=== PATIENT | female | born 1980 | race Caucasian/White ===

== ENCOUNTER 2022-11-16 10:03 | Emergency (ER) | payer SELFPAY ==
--- OUTSIDE RECORDS SUMMARY | 2022-11-16 10:12 | XMS REPORT | Continuity of Care Document ---
:1980 Author Organization [facility] t Address [address] [place] [address] Care Team Providers Name Role Phone [facility] EDD, [facility] Primary Care Physician [phone] GAGAN GARCIA Attending Clinician Unavailable MARCELLA LR Attending Clinician Unavailable Leonel Arrieta MD Attending Clinician LEONEL ARRIETA Attending Clinician Unavailable Gagan Ureña Attending Clinician Doctor Unassigned, [place] Attending Clinician Unavailable JULI FRY Attending Clinician Unavailable Juli Castillo Attending Clinician Nurse, Shandra Urgent Attending Clinician Unavailable Unknown, Attending Attending Clinician Unavailable CHRISTIANA ESTEBAN Attending Clinician Unavailable Chad Darby MD Attending Clinician [facility] Attending Clinician Unavailable Only, Shandra Uc Test Attending Clinician Unavailable WEI DE LEON Attending Clinician Unavailable MARLENE AMBRIZ Attending Clinician Unavailable Carleen SALINAS, Marlene Juarez Attending Clinician Leonel Dorsey MD Attending Clinician KAREN COUCH Attending Clinician Unavailable Shabbir PUGA, Karen Mckeon Attending Clinician BOZENA QUICK Attending Clinician Unavailable FAUSTO SIMEON Attending Clinician Unavailable Ame SAENZ, Aliza Ceron Attending Clinician RACHEL RED Attending Clinician Unavailable RACHEL RED Attending Clinician Unavailable Maren HINSON, Deidra Walker Attending Clinician Star Littlejohn MD Attending Clinician CHAD DARBY Attending Clinician Unavailable Calvin PUGA, Radha Attending Clinician [phone] Care, Shandra Urgent Attending Clinician Unavailable RADHA SIMPSON Attending Clinician Unavailable UNKNOWN, ATTENDING Attending Clinician Unavailable Yesenia Long Attending Clinician Unavailable PAIGE CURRIE Attending Clinician Unavailable Tenisha Morales Attending Clinician KORIN AMBRIZ Attending Clinician Unavailable JER LOPEZ Attending Clinician Unavailable JER LOPEZ Attending Clinician Unavailable SONA RUIZ Attending Clinician Unavailable Rachel Teran MD Attending Clinician [phone] RACHEL TERAN Attending Clinician Unavailable [facility] Attending Clinician Unavailable Paige Currie DO Attending Clinician Korin Ambriz MD Attending Clinician [phone] Gilberto Dalton Attending Clinician Unavailable LARRY WATTS Attending Clinician Unavailable Larry Watts MD Attending Clinician Draw, Clc-Bls Lab Attending Clinician Unavailable NATI LITTLEJOHN Attending Clinician Unavailable Darryl Romero DO Attending Clinician Christiana Esteban PA-C Attending Clinician Lab, Adc Fam Pob I Attending Clinician Unavailable Gatito Xiong Attending Clinician GATITO MIXON Attending Clinician Unavailable NASEEM LEE Attending Clinician Unavailable DARYL BOWEN Attending Clinician Unavailable Lenny Smith MD Attending Clinician LENNY SMITH Attending Clinician Unavailable GABBI RÍOS Attending Clinician Unavailable Khushbu SWEDGER, Gabbi Attending Clinician Lab, Web Sleep Attending Clinician Unavailable Physician, No Primary or Family Admitting Clinician UnavailRACHEL Ibarra Admitting Clinician Unavailable Yesenia Long Admitting Clinician Unavailable Payers Payer Name Policy Type Policy Number Effective Date Expiration Date Ines TAVARES BCSHAYE RODRIGUEZ [id number] 2019 ADVANTAGE HMO 00:00:00 AGENCY GENERIC [id number] 2021 00:00:00 Problems Condition Condition Condition Status Onset Resolution Last Treating Co mments Source Name Details Category Date Date Treatment Clinician Date Cellulitis Cellulitis Disease Active U nivers of right of right 6-20 ity of upper upper 00:00: [place] extremity extremity 00 Medi elaine Branch Abscess Abscess Disease Active Univers 6-19 ity of 00:00: [place] [facility] Branch Anxiety Anxiety Disease Active Univers and and 6-13 ity of depression depression 00:[place]: [place] [facility] Bipolar Bipolar Disease Active Univers affective affective 6-13 ity of disorder, disorder, 00:00: [place] s current current 00 Medical episode episode Branch depressed, depressed, current current episode episode severity severity unspecifie unspecifie d d Pelvic Pelvic Disease Active Univers mass mass 8-02 ity of 00:00: [place] [facility] Hyperlipid Hyperlipid Disease Active U nivers emia, emia, 7-27 ity of unspecifie unspecifie 00:[place] hyperlipid hyperlipid Br anch emia type emia type Obesity Obesity Disease Active Univers (BMI (BMI 8-20 ity of 30-39.9) 30-39.9) 00:00: [place] 00 Medical Branch Uncontroll Uncontroll Disease Active U nivers ed daytime ed daytime 06-09 it y of somnolence somnolence 00:00: [place] [facility] FH: FH: Disease Active Univers rheumatoid rheumatoid 06-09 it y of arthritis arthritis [place] Chronic Chronic Disease Active Univers pain of pain of 06-09 ity of multiple multiple 00:00: [place] joints joints 00 Medical Branch AIDS AIDS Disease Recurre Univers nce 6-12 ity of 00:00: [place] 00 Medical Branch IVDU IVDU Disease Active Univers (intraveno (intraveno 04-19 it y of us drug us drug 00:00: [place] user) user) [address] [facility] Allergies, Adverse Reactions, Alerts Allergy Allergy Status Severity Reaction(s) Onset Inactive Treating Comm ents Source Name Type Date Date Clinician No Known DA Active U [facility] Allergie 1-29 Clear s 00:00: [place] [address] [facility] NO KNOWN Drug Active Univers ALLERGIE Class ity of S [facility] Social History Social Habit Start Date Stop Date Quantity Comments Source Alcohol intake 2022-10-20 2022-10-20 Current University of 00:00:00 00:00:00 non-drinker of [facility] alcohol [place] (finding) Exposure to 2022-10-09 2022-10-19 Not sure University of SARS-CoV-2 (event) 00:00:00 10:41:00 [facility] Cigarettes smoked 2022-06-23 2022-06-23 Univers ity of current (pack per 00:00:00 00:00:00 [place] ) - Reported Branch Tobacco use and 2022-06-23 2022-06-23 Smokeless Universit y of exposure 00:00:00 00:00:00 tobacco non-user [facility] History of tobacco 2017-05-18 Cigarette Smoker University of use 00:00:00 [facility] Sex Ass[birth year] At [birth year] Universit y of 00:00:00 00:00:00 [facility] Smoking Status Start Date Stop Date Source Smokes tobacco daily 2022-06-23 00:00:00 Univers ity of [facility] Medications Ordered Filled Start Stop Current Ordering Indication Dosage Frequency Signature Comments Components Source Medication Medication Date Date Medication? Clinician (SIG) Name Name TAKE ONE No TABLET BY 1-02 MOUTH EVERY 00:00: MORNING 00 OLANZAPINE No 5 MG TABS 11-08 00:00: 00 No known 2021-11 No No known Unive rs medications 2-22 medication it y of 15:12: s [place] 13 Medical Branch amoxicillin 2021-11- Yes [id number] 1000mg Take 2 Univers 500 mg 2-13 12-24 capsules ity of capsule 00:00: 05:59 by mouth [place] 00 :00 in the Medical morning Branch and 2 capsules in the evening. Do all this for 10 days. amoxicillin 2021-11- Yes [id number] 1000mg Take 2 Univers 500 mg 2-13 12-24 capsules ity of capsule 00:00: 05:59 by mouth [place] 00 :00 in the Medical morning Branch and 2 capsules in the evening. Do all this for 10 days. aripiprazol 2021-11 Yes Take by Uni vers e (ABILIFY 1-29 mouth. ity of ORAL) 16:17: [place] [facility] aripiprazol 2021-11 Yes Take by Uni vers e (ABILIFY 1-29 mouth. ity of ORAL) 16:17: [place] [facility] aripiprazol 2021-11 Yes Take by Uni vers e (ABILIFY 1-29 mouth. ity of ORAL) 16:17: [place] [facility] aripiprazol 2021-11 Yes Take by Uni vers e (ABILIFY 1-29 mouth. ity of ORAL) 16:17: [place] [facility] aripiprazol 2021-11 Yes Take by Uni vers e (ABILIFY 1-29 mouth. ity of ORAL) 16:17: [place] [address] [facility] OLANZapine 2021-11- No 7.5mg Take 7.5 U nivers 2.5 mg 1-29 11-29 mg by ity of tablet 15:35: 00:00 mouth at [place] 26 :00 bedtime. [facility] Branch OLANZapine 2021-11- No 7.5mg Take 7.5 U nivers 2.5 mg 1-29 11-29 mg by ity of tablet 15:35: 00:00 mouth at [place] 26 :00 bedtime. Medical Branch TRIUMEQ 2021-11 Yes [id number] 1{tbl} Take 1 Un tobias 600-50-300 1-29 tablet by ity of mg per 00:00: mouth [place] tablet 00 every Medical morning. Branch TRIUMEQ 2021-11 Yes [id number] 1{tbl} Take 1 Un tobias 600-50-300 1-29 tablet by ity of mg per 00:00: mouth [place] tablet 00 every Medical morning. [place] [facility]11 Yes [id number] 1{tbl} Take 1 Un tobias 600-50-300 1-29 tablet by ity of mg per 00:00: mouth [place] tablet 00 every Medical morning. [place] [facility] 2021-11 Yes [id number] 1{tbl} Take 1 Un tobias 600-50-300 1-29 tablet by ity of mg per 00:00: mouth [place] tablet 00 every Medical morning. [place] [facility]11 Yes [id number] 1{tbl} Take 1 Un tobias 600-50-300 1-29 tablet by ity of mg per 00:00: mouth [place] tablet 00 every Medical morning. [place] abacavir-do Yes [id number] 1{tbl} Take 1 Univers lutegravir- 8-31 tablet by ity of lamivudine 00:00: mouth [place] (TRIUMEQ) 00 every Medical 600-50-300 morning. Branc h mg per tablet abacavir-do Yes [id number] 1{tbl} Take 1 Univers lutegravir- 8-31 tablet by ity of lamivudine 00:00: mouth [place] (TRIUMEQ) 00 every Medical 600-50-300 morning. Branc h mg per tablet abacavir-do Yes [id number] 1{tbl} Take 1 Univers lutegravir- 8-31 tablet by ity of lamivudine 00:00: mouth [place] (TRIUMEQ) 00 every Medical 600-50-300 morning. Branc h mg per tablet abacavir-do Yes [id number] 1{tbl} Take 1 Univers lutegravir- 8-31 tablet by ity of lamivudine 00:00: mouth [place] (TRIUMEQ) 00 every Medical 600-50-300 morning. Branc h mg per tablet abacavir-do 0 No [id number] 1{tbl} Take 1 Univers lutegravir- 8-31 11-29 tablet by it y of lamivudine 00:00: 00:00 mouth [place] (TRIUMEQ) 00 :00 every Medical 600-50-300 morning. Branc h mg per tablet abacavir-do 0 2021- No [id number] 1{tbl} Take 1 Univers lutegravir- 8-31 11-29 tablet by it y of lamivudine 00:00: 00:00 mouth [place] (TRIUMEQ) 00 :00 every Medical 600-50-300 morning. Branc h mg per tablet DULoxetine 2021-0 Yes 40mg Take 40 mg U nivers 20 mg 8-16 by mouth ity of capsule 08:07: at [place] [address] bedtime. Medical Branch OLANZapine 2021-0 Yes 7.5mg Take 7.5 Un tobias 2.5 mg 8-16 mg by ity of tablet 08:07: mouth at [place] [address] bedtime. Medical Branch DULoxetine 2021-0 Yes 40mg Take 40 mg U nivers 20 mg 8-16 by mouth ity of capsule 08:07: at [place] [address] bedtime. Medical Branch OLANZapine 2021-0 Yes 7.5mg Take 7.5 Un tobias 2.5 mg 8-16 mg by ity of tablet 08:07: mouth at [place] [address] bedtime. Medical Branch DULoxetine 2021-0 Yes 40mg Take 40 mg U nivers 20 mg 8-16 by mouth ity of capsule 08:07: at [place] [address] bedtime. Medical Branch OLANZapine 2-0 Yes 7.5mg Take 7.5 Un tobias 2.5 mg 8-16 mg by ity of tablet 08:07: mouth at [place] [address] bedtime. Medical Branch DULoxetine 2-0 Yes 40mg Take 40 mg U nivers 20 mg 8-16 by mouth ity of capsule 08:07: at [place] [address] bedtime. Medical Branch OLANZapine 2-0 Yes 7.5mg Take 7.5 Un tobias 2.5 mg 8-16 mg by ity of tablet 08:07: mouth at [place] [address] bedtime. Medical Branch DULoxetine 2-0 Yes 40mg Take 40 mg U nivers 20 mg 8-16 by mouth ity of capsule 08:07: at [place] [address] bedtime. Medical Branch OLANZapine 2022-0 Yes 7.5mg Take 7.5 Un tobias 2.5 mg 8-16 mg by ity of tablet 08:07: mouth at [place] [address] bedtime. Medical Branch DULoxetine 2022-0 Yes 40mg Take 40 mg U nivers 20 mg 8-16 by mouth ity of capsule 08:07: at [place] [address] bedtime. Medical Branch OLANZapine 2022-0 Yes 7.5mg Take 7.5 Un tobias 2.5 mg 8-16 mg by ity of tablet 08:07: mouth at [place] [address] bedtime. Medical Branch DULoxetine 2022-0 Yes 40mg Take 40 mg U nivers 20 mg 8-16 by mouth ity of capsule 08:07: at [place] [address] bedtime. Medical Branch OLANZapine 2022-0 Yes 7.5mg Take 7.5 Un tobias 2.5 mg 8-16 mg by ity of tablet 08:07: mouth at [place] [address] bedtime. Medical Branch DULoxetine 2022-0 Yes 40mg Take 40 mg U nivers 20 mg 8-16 by mouth ity of capsule 08:07: at [place] [address] bedtime. Medical Branch OLANZapine 2022-0 Yes 7.5mg Take 7.5 Un tobias 2.5 mg 8-16 mg by ity of tablet 08:07: mouth at [place] [address] bedtime. Medical Branch DULoxetine 2022-0 Yes 40mg Take 40 mg U nivers 20 mg 8-16 by mouth ity of capsule 08:07: at [place] [address] bedtime. Medical Branch DULoxetine 2022-0 Yes 40mg Take 40 mg U nivers 20 mg 8-16 by mouth ity of capsule 08:07: at [place] [address] bedtime. Medical Branch DULoxetine 2022-0 Yes 40mg Take 40 mg U nivers 20 mg 8-16 by mouth ity of capsule 08:07: at [place] [address] bedtime. Medical Branch DULoxetine 2022-0 Yes 40mg Take 40 mg U nivers 20 mg 8-16 by mouth ity of capsule 08:07: at [place] [address] bedtime. Medical Branch DULoxetine 2022-0 Yes 40mg Take 40 mg U nivers 20 mg 8-16 by mouth ity of capsule 08:07: at [place] [address] bedtime. Medical Branch cyclobenzap 2022-0 Yes TAKE ONE Un tobias rine 10 mg 8-08 TABLET BY ity of tablet 00:00: MOUTH [place] 00 TWICE Medical DAILY Branch NEEDED cyclobenzap 2022-0 Yes TAKE ONE Un tobias rine 10 mg 8-08 TABLET BY ity of tablet 00:00: MOUTH [place] 00 TWICE Medical DAILY Branch NEEDED cyclobenzap 2022-0 Yes TAKE ONE Un tobias rine 10 mg 8-08 TABLET BY ity of tablet 00:00: MOUTH [place] 00 TWICE Medical DAILY Branch NEEDED cyclobenzap 2022-0 Yes TAKE ONE Un tobias rine 10 mg 8-08 TABLET BY ity of tablet 00:00: MOUTH [place] 00 TWICE Medical DAILY Branch NEEDED cyclobenzap 2022-0 Yes TAKE ONE Un tobias rine 10 mg 8-08 TABLET BY ity of tablet 00:00: MOUTH [place] 00 TWICE Medical DAILY Branch NEEDED cyclobenzap 2022-0 Yes TAKE ONE Un tobias rine 10 mg 8-08 TABLET BY ity of tablet 00:00: MOUTH [place] 00 TWICE Medical DAILY Branch NEEDED cyclobenzap 2022-0 Yes TAKE ONE Un tobias rine 10 mg 8-08 TABLET BY ity of tablet 00:00: MOUTH [place] 00 TWICE Medical DAILY Branch NEEDED cyclobenzap 2022-0 Yes TAKE ONE Un tobias rine 10 mg 8-08 TABLET BY ity of tablet 00:00: MOUTH [place] 00 TWICE Medical DAILY Branch NEEDED cyclobenzap 2022-0 2- No TAKE ONE U nivers rine 10 mg 8-08 11-29 TABLET BY ity of tablet 00:00: 00:00 MOUTH [place] 00 :00 TWICE Medical DAILY Branch NEEDED cyclobenzap 2022-0 2- No TAKE ONE U nivers rine 10 mg 8-08 11-29 TABLET BY ity of tablet 00:00: 00:00 MOUTH [place] 00 :00 TWICE Medical DAILY Branch NEEDED buPROPion 2022-0 Yes TAKE TWO Univ ers SR 150 mg 8-03 TABLETS BY ity of SR tablet 00:00: MOUTH [place] 00 EVERY Medical MORNING Branch buPROPion 2021-0 Yes TAKE TWO Univ ers SR 150 mg 8-03 TABLETS BY ity of SR tablet 00:00: MOUTH [place] 00 EVERY Medical MORNING Branch buPROPion 2-0 Yes TAKE TWO Univ ers SR 150 mg 8-03 TABLETS BY ity of SR tablet 00:00: MOUTH [place] 00 EVERY Medical MORNING Branch buPROPion 2022-0 Yes TAKE TWO Univ ers SR 150 mg 8-03 TABLETS BY ity of SR tablet 00:00: MOUTH 00 EVERY Medical MORNING Branch buPROPion 0 Yes TAKE TWO Univ ers SR 150 mg 8-03 TABLETS BY ity of SR tablet 00:00: MOUTH 00 EVERY Medical MORNING Branch buPROPion 0 Yes TAKE TWO Univ ers SR 150 mg 8-03 TABLETS BY ity of SR tablet 00:00: MOUTH [place] 00 EVERY Medical MORNING Branch buPROPion Yes TAKE TWO Univ ers SR 150 mg 8-03 TABLETS BY ity of SR tablet 00:00: MOUTH 00 EVERY Medical MORNING Branch buPROPion Yes TAKE TWO Univ ers SR 150 mg 8-03 TABLETS BY ity of SR tablet 00:00: MOUTH [place] 00 EVERY Medical MORNING Branch buPROPion Yes TAKE TWO Univ ers SR 150 mg 8-03 TABLETS BY ity of SR tablet 00:00: MOUTH [place] EVERY Medical MORNING Branch buPROPion Yes TAKE TWO Univ ers SR 150 mg 8-03 TABLETS BY ity of SR tablet 00:00: MOUTH [place] 00 EVERY Medical MORNING Branch buPROPion Yes TAKE TWO Univ ers SR 150 mg 8-03 TABLETS BY ity of SR tablet 00:00: MOUTH [place] 00 EVERY Medical MORNING Branch buPROPion 0 Yes TAKE TWO Univ ers SR 150 mg 8-03 TABLETS BY ity of SR tablet 00:00: MOUTH [place] 00 EVERY Medical MORNING Branch buPROPion 0 Yes TAKE TWO Univ ers SR 150 mg 8-03 TABLETS BY ity of SR tablet 00:00: MOUTH [place] 00 EVERY Medical MORNING Branch escitalopra Yes 10mg Take 10 mg Univers m oxalate 8-02 by mouth ity of 10 mg 00:00: every [place] tablet 00 morning. Medical Branch hydrOXYzine Yes TAKE ONE Un tobias 50 mg 8-02 CAPSULE BY ity of capsule 00:00: MOUTH [place] 00 EVERY 6 Medical HOURS Branch NEEDED traZODone Yes TAKE ONE Univ ers 100 mg 8-02 TABLET BY ity of tablet 00:00: MOUTH AT [place] 00 BEDTIME Medical NEEDED Branch escitalopra 0 Yes 10mg Take 10 mg Univers m oxalate 8-02 by mouth ity of 10 mg 00:00: every [place] tablet 00 morning. Medical Branch hydrOXYzine 0 Yes TAKE ONE Un tobias 50 mg 8-02 CAPSULE BY ity of capsule 00:00: MOUTH [place] 00 EVERY 6 Medical HOURS Branch NEEDED traZODone 2021-0 Yes TAKE ONE Univ ers 100 mg 8-02 TABLET BY ity of tablet 00:00: MOUTH AT [place] 00 BEDTIME Medical NEEDED Branch escitalopra 2021-0 Yes 10mg Take 10 mg Univers m oxalate 8-02 by mouth ity of 10 mg 00:00: every [place] tablet 00 morning. Medical Branch hydrOXYzine Yes TAKE ONE Un tobias 50 mg 8-02 CAPSULE BY ity of capsule 00:00: MOUTH 00 EVERY 6 Medical HOURS Branch NEEDED traZODone 2021-0 Yes TAKE ONE Univ ers 100 mg 8-02 TABLET BY ity of tablet 00:00: MOUTH AT [place] 00 BEDTIME Medical NEEDED Branch escitalopra 2021-0 Yes 10mg Take 10 mg Univers m oxalate 8-02 by mouth ity of 10 mg 00:00: every [place] tablet 00 morning. Medical Branch hydrOXYzine 0 Yes TAKE ONE Un tobias 50 mg 8-02 CAPSULE BY ity of capsule 00:00: MOUTH [place] 00 EVERY 6 Medical HOURS Branch NEEDED traZODone 2021-0 Yes TAKE ONE Univ ers 100 mg 8-02 TABLET BY ity of tablet 00:00: MOUTH AT [place] 00 BEDTIME Medical NEEDED Branch escitalopra 2021-0 Yes 10mg Take 10 mg Univers m oxalate 8-02 by mouth ity of 10 mg 00:00: every [place] tablet 00 morning. Medical Branch hydrOXYzine 0 Yes TAKE ONE Un tobias 50 mg 8-02 CAPSULE BY ity of capsule 00:00: MOUTH [place] 00 EVERY 6 Medical HOURS Branch NEEDED traZODone 2021-0 Yes TAKE ONE Univ ers 100 mg 8-02 TABLET BY ity of tablet 00:00: MOUTH AT [place] 00 BEDTIME Medical NEEDED Branch escitalopra 2021-0 Yes 10mg Take 10 mg Univers m oxalate 8-02 by mouth ity of 10 mg 00:00: every [place] tablet 00 morning. Medical Branch hydrOXYzine 0 Yes TAKE ONE Un tobias 50 mg 8-02 CAPSULE BY ity of capsule 00:00: MOUTH [place] 00 EVERY 6 Medical HOURS Branch NEEDED traZODone 2022-0 Yes TAKE ONE Univ ers 100 mg 8-02 TABLET BY ity of tablet 00:00: MOUTH AT [place] BEDTIME Medical NEEDED Branch escitalopra 2-0 Yes 10mg Take 10 mg Univers m oxalate 8-02 by mouth ity of 10 mg 00:00: every [place] tablet 00 morning. Medical Branch hydrOXYzine 2021-0 Yes TAKE ONE Un tobias 50 mg 8-02 CAPSULE BY ity of capsule 00:00: MOUTH EVERY 6 Medical HOURS Branch NEEDED traZODone 2-0 Yes TAKE ONE Univ ers 100 mg 8-02 TABLET BY ity of tablet 00:00: MOUTH AT [place] BEDTIME Medical NEEDED Branch escitalopra 2021-0 Yes 10mg Take 10 mg Univers m oxalate 8-02 by mouth ity of 10 mg 00:00: every [place] tablet 00 morning. Medical Branch hydrOXYzine 2021-0 Yes TAKE ONE Un tobias 50 mg 8-02 CAPSULE BY ity of capsule 00:00: MOUTH EVERY 6 Medical HOURS Branch NEEDED traZODone 2-0 Yes TAKE ONE Univ ers 100 mg 8-02 TABLET BY ity of tablet 00:00: MOUTH AT [place] BEDTIME Medical NEEDED Branch hydrOXYzine 2021-0 Yes TAKE ONE Un tobias 50 mg 8-02 CAPSULE BY ity of capsule 00:00: MOUTH EVERY 6 Medical HOURS Branch NEEDED traZODone 2-0 Yes TAKE ONE Univ ers 100 mg 8-02 TABLET BY ity of tablet 00:00: MOUTH AT [place] BEDTIME Medical NEEDED Branch hydrOXYzine 2-0 Yes TAKE ONE Un tobias 50 mg 8-02 CAPSULE BY ity of capsule 00:00: MOUTH EVERY 6 Medical HOURS Branch NEEDED traZODone 2-0 Yes TAKE ONE Univ ers 100 mg 8-02 TABLET BY ity of tablet 00:00: MOUTH AT [place] BEDTIME Medical NEEDED Branch hydrOXYzine 2-0 Yes TAKE ONE Un tobias 50 mg 8-02 CAPSULE BY ity of capsule 00:00: MOUTH EVERY 6 Medical HOURS Branch NEEDED traZODone 2-0 Yes TAKE ONE Univ ers 100 mg 8-02 TABLET BY ity of tablet 00:00: MOUTH AT BEDTIME Medical NEEDED Branch hydrOXYzine Yes TAKE ONE Un tobias 50 mg 8-02 CAPSULE BY ity of capsule 00:00: MOUTH EVERY 6 Medical HOURS Branch NEEDED traZODone Yes TAKE ONE Univ ers 100 mg 8-02 TABLET BY ity of tablet 00:00: MOUTH AT [place] BEDTIME Medical NEEDED Branch hydrOXYzine Yes TAKE ONE Un tobias 50 mg 8-02 CAPSULE BY ity of capsule 00:00: MOUTH EVERY 6 Medical HOURS Branch NEEDED traZODone Yes TAKE ONE Univ ers 100 mg 8-02 TABLET BY ity of tablet 00:00: MOUTH AT [place] BEDTIME Medical NEEDED Branch escitalopra 2021- No 10mg Take 10 mg Univers m oxalate 06-09 by mouth ity o f 10 mg 00:00: 00:00 every [place] tablet 00 :00 morning. Medical Branch escitalopra 2021- No 10mg Take 10 mg Univers m oxalate 06-09 by mouth ity o f 10 mg 00:00: 00:00 every [place] tablet 00 :00 morning. Medical Branch TRIUMEQ 2021- No [id number] 1{tbl} Take 1 U nivers 600-50-300 6-27 08-31 tablet by ity of mg per 00:00: 00:00 mouth [place] tablet 00 :00 every Medical morning. Branch TRIUMEQ 2021- No [id number] 1{tbl} Take 1 U nivers 600-50-300 6-27 -31 tablet by ity of mg per 00:00: 00:00 mouth [place] tablet 00 :00 every Medical morning. Branch benztropine Yes 1mg Take 1 mg U nivers 1 mg tablet 8-27 by mouth ity of 00:00: daily. Medical Branch benztropine 0 Yes 1mg Take 1 mg U nivers 1 mg tablet 8-27 by mouth ity of 00:00: daily. Medical Branch benztropine 2020-0 Yes 1mg Take 1 mg U nivers 1 mg tablet 8-27 by mouth ity of 00:00: daily. Medical Branch benztropine 2021-0 Yes 1mg Take 1 mg U nivers 1 mg tablet 8-27 by mouth ity of 00:00: daily. [place] [facility] benztropine 2020-0 Yes 1mg Take 1 mg U nivers 1 mg tablet 8-27 by mouth ity of 00:00: daily. [place] [facility] benztropine 2020-0 Yes 1mg Take 1 mg U nivers 1 mg tablet 8-27 by mouth ity of 00:00: daily. [place] [facility] benztropine 2020-0 Yes 1mg Take 1 mg U nivers 1 mg tablet 8-27 by mouth ity of 00:00: daily. [place] [facility] benztropine 2020-0 Yes 1mg Take 1 mg U nivers 1 mg tablet 8-27 by mouth ity of 00:00: daily. [place] [facility] benztropine 2020-0 2022- No 1mg Take 1 mg Univers 1 mg tablet 8-27 11-29 by mouth ity of 00:00: 00:00 daily. [place] 00 : [facility] benztropine 2020-0 2022- No 1mg Take 1 mg Univers 1 mg tablet 8-27 11-29 by mouth ity of 00:00: 00:00 daily. [place] 00 :[address] [facility] Immunizations Ordered Filled Immunization Date Status Comments [facility] e Immunization Name Name Influenza Virus 2022-10-06 Completed Universit y of Vaccine Quad IM, 00:00:00 [facility] dical Preserv and ABX Branch Free 6 MO-64 YRS SARS-COV-2 COVID-19 2022-10-06 Completed Unive rsity of VACCINE 12 YRS+, 00:00:00 [facility] dical BIVALENT 0.5ML, IM, Branc h (MODERNA BOOSTER) Influenza Virus 2022-10-06 Completed Universit y of Vaccine Quad IM, 00:00:00 [facility] dical Preserv and ABX Branch Free 6 MO-64 YRS SARS-COV-2 COVID-19 2022-10-06 Completed Unive rsity of VACCINE 12 YRS+, 00:00:00 [facility] dical BIVALENT 0.5ML, IM, Branc h (MODERNA BOOSTER) Influenza Virus 2022-10-06 Completed Universit y of Vaccine Quad IM, 00:00:00 [facility] dical Preserv and ABX Branch Free 6 MO-64 YRS SARS-COV-2 COVID-19 2022-10-06 Completed Unive rsity of VACCINE 12 YRS+, 00:00:00 [place] Me dical BIVALENT 0.5ML, IM, Branc h (MODERNA BOOSTER) Influenza Virus 2022-10-06 Completed Universit y of Vaccine Quad IM, 00:00:00 [place] Me dical Preserv and ABX Branch Free 6 MO-64 YRS SARS-COV-2 COVID-19 2022-10-06 Completed Unive rsity of VACCINE 12 YRS+, 00:00:00 [place] Me dical BIVALENT 0.5ML, IM, Branc h (MODERNA BOOSTER) Influenza Virus 2022-10-06 Completed Universit y of Vaccine Quad IM, 00:00:00 [place] Me dical Preserv and ABX Branch Free 6 MO-64 YRS SARS-COV-2 COVID-19 2022-10-06 Completed Unive rsity of VACCINE 12 YRS+, 00:00:00 [place] [facility] BIVALENT 0.5ML, IM, Branc h (MODERNA BOOSTER) Influenza Virus 2021-10-27 Completed Universit y of Vaccine Quad IM, 00:00:00 [place] [facility] Preserv and ABX Branch Free 6 MO-64 YRS Influenza Virus 2021-10-27 Completed Universit y of Vaccine Quad IM, 00:00:00 [place] [facility] Preserv and ABX Branch Free 6 MO-64 YRS Influenza Virus 2021-10-27 Completed Universit y of Vaccine Quad IM, 00:00:00 [place] [facility] Preserv and ABX Branch Free 6 MO-64 YRS Influenza Virus 2021-10-27 Completed Universit y of Vaccine Quad IM, 00:00:00 [place] [facility] Preserv and ABX Branch Free 6 MO-64 YRS Influenza Virus 2021-10-27 Completed Universit y of Vaccine Quad IM, 00:00:00 [place] [facility] Preserv and ABX Branch Free 6 MO-64 YRS Influenza Virus 2021-10-27 Completed Universit y of Vaccine Quad IM, 00:00:00 [place] [facility] Preserv and ABX Branch Free 6 MO-64 YRS Influenza Virus 2021-10-27 Completed Universit y of Vaccine Quad IM, 00:00:00 [place] [facility] Preserv and ABX Branch Free 6 MO-64 YRS Influenza Virus 2021-10-27 Completed Universit y of Vaccine Quad IM, 00:00:00 [place] [facility] Preserv and ABX Branch Free 6 MO-64 YRS Influenza Virus 2021-10-27 Completed Universit y of Vaccine Quad IM, 00:00:00 [place] [facility] Preserv and ABX Branch Free 6 MO-64 YRS Influenza Virus 2021-10-27 Completed Universit y of Vaccine Quad IM, 00:00:00 [place] [facility] Preserv and ABX Branch Free 6 MO-64 YRS Influenza Virus 2021-10-27 Completed Universit y of Vaccine Quad IM, 00:00:00 [place] [facility] Preserv and ABX Branch Free 6 MO-64 YRS Influenza Virus 2021-10-27 Completed Universit y of Vaccine Quad IM, 00:00:00 [place] [facility] Preserv and ABX Branch Free 6 MO-64 YRS Influenza Virus 2021-10-27 Completed Universit y of Vaccine Quad IM, 00:00:00 [place] [facility] Preserv and ABX Branch Free 6 MO-64 YRS Influenza Virus 2021-10-27 Completed Universit y of Vaccine Quad IM, 00:00:00 [place] [facility] Preserv and ABX Branch Free 6 MO-64 YRS SARS-COV-2 COVID-19 2021-05-13 Completed Unive rsity of MODERNA 12+ YRS 00:00:00 [facility] ical VACCINE Branch SARS-COV-2 COVID-19 2021-05-13 Completed Unive rsity of MODERNA 12+ YRS 00:00:00 [facility] ical VACCINE Branch SARS-COV-2 COVID-19 2021-05-13 Completed Unive rsity of MODERNA 12+ YRS 00:00:00 [facility] [place] [facility] VACCINE Branch SARS-COV-2 COVID-19 2021-05-13 Completed Unive rsity of MODERNA 12+ YRS 00:00:00 [place] [facility] VACCINE Branch SARS-COV-2 COVID-19 2021-05-13 Completed Unive rsity of MODERNA 12+ YRS 00:00:00 [facility] ical VACCINE Branch SARS-COV-2 COVID-19 2021-05-13 Completed Unive rsity of MODERNA 12+ YRS 00:00:00 [facility] ical VACCINE Branch SARS-COV-2 COVID-19 2021-04-26 Completed Unive rsity of MODERNA 12+ YRS 00:00:00 [facility] ica VACCINE Branch SARS-COV-2 COVID-19 2021-04-26 Completed Unive rsity of MODERNA 12+ YRS 00:00:00 [facility] ica VACCINE Branch SARS-COV-2 COVID-19 2021-04-26 Completed Unive rsity of MODERNA 12+ YRS 00:00:00 [facility] VACCINE Branch SARS-COV-2 COVID-19 2021-04-26 Completed Unive rsity of MODERNA 12+ YRS 00:00:00 [facility] VACCINE Branch SARS-COV-2 COVID-19 2021-04-26 Completed Unive rsity of MODERNA 12+ YRS 00:00:00 [facility] VACCINE Branch SARS-COV-2 COVID-19 2021-04-26 Completed Unive rsity of MODERNA 12+ YRS 00:00:00 [facility] VACCINE Branch Influenza Virus 2020-09-04 Completed Universit y of Vaccine 00:00:00 [facility] Influenza Virus 2020-09-04 Completed Universit y of Vaccine 00:00:00 [facility] Influenza Virus 2020-09-04 Completed Universit y of Vaccine 00:00:00 [facility] Influenza Virus 2020-09-04 Completed Universit y of Vaccine 00:00:00 [facility] Influenza Virus 2020-09-04 Completed Universit y of Vaccine 00:00:00 [facility] Influenza Virus 2020-09-04 Completed Universit y of Vaccine 00:00:00 [facility] Influenza Virus 2020-09-04 Completed Universit y of Vaccine 00:00:00 [facility] Influenza Virus 2020-09-04 Completed Universit y of Vaccine 00:00:00 [facility] Influenza Virus 2020-09-04 Completed Universit y of Vaccine 00:00:00 [facility] Influenza Virus 2020-09-04 Completed Universit y of Vaccine 00:00:00 [facility] Influenza Virus 2020-09-04 Completed Universit y of Vaccine 00:00:00 [facility] Influenza Virus 2020-09-04 Completed Universit y of Vaccine 00:00:00 [facility] Influenza Virus 2020-09-04 Completed Universit y of Vaccine 00:00:00 [facility] Influenza Virus 2020-09-04 Completed Universit y of Vaccine 00:00:00 [facility] Influenza Virus 2019-09-23 Completed Universit y of Vaccine 00:00:00 [facility] Influenza Virus 2019-09-23 Completed Universit y of Vaccine 00:00:00 [facility] Influenza Virus 2019-09-23 Completed Universit y of Vaccine 00:00:00 [facility] Influenza Virus 2019-09-23 Completed Universit y of Vaccine 00:00:00 [facility] Influenza Virus 2019-09-23 Completed Universit y of Vaccine 00:00:00 [facility] Influenza Virus 2019-09-23 Completed Universit y of Vaccine 00:00:00 [facility] Influenza Virus 2019-09-23 Completed Universit y of Vaccine 00:00:00 [facility] Influenza Virus 2019-09-23 Completed Universit y of Vaccine 00:00:00 [facility] Influenza Virus 2019-09-23 Completed Universit y of Vaccine 00:00:00 [facility] Influenza Virus 2019-09-23 Completed Universit y of Vaccine 00:00:00 [facility] Influenza Virus 2019-09-23 Completed Universit y of Vaccine 00:00:00 [facility] Influenza Virus 2019-09-23 Completed Universit y of Vaccine 00:00:00 [facility] Influenza Virus 2019-09-23 Completed Universit y of Vaccine 00:00:00 [facility] Influenza Virus 2019-09-23 Completed Universit y of Vaccine 00:00:00 [facility] Influenza Virus 2019-08-28 Completed Universit y of Vaccine Quad .5 mL 00:00:00 [facility] 6+ MO Branch Influenza Virus 2019-08-28 Completed Universit y of Vaccine Quad .5 mL 00:00:00 [facility] 6+ MO Branch Influenza Virus 2019-08-28 Completed Universit y of Vaccine Quad .5 mL 00:00:00 [facility] 6+ MO Branch Influenza Virus 2019-08-28 Completed Universit y of Vaccine Quad .5 mL 00:00:00 [facility] 6+ MO Branch Influenza Virus 2019-08-28 Completed Universit y of Vaccine Quad .5 mL 00:00:00 [facility] 6+ MO Branch Influenza Virus 2019-08-28 Completed Universit y of Vaccine Quad .5 mL 00:00:00 [facility] 6+ MO Branch Influenza Virus 2019-08-28 Completed Universit y of Vaccine Quad .5 mL 00:00:00 [facility] 6+ MO Branch Influenza Virus 2019-08-28 Completed Universit y of Vaccine Quad .5 mL 00:00:00 [facility] 6+ MO Branch Influenza Virus 2019-08-28 Completed Universit y of Vaccine Quad .5 mL 00:00:00 [facility] 6+ MO Branch Influenza Virus 2019-08-28 Completed Universit y of Vaccine Quad .5 mL 00:00:00 [facility] 6+ MO Branch Influenza Virus 2019-08-28 Completed Universit y of Vaccine Quad .5 mL 00:00:00 [facility] 6+ MO Branch Influenza Virus 2019-08-28 Completed Universit y of Vaccine Quad .5 mL 00:00:00 [facility] 6+ MO Branch Influenza Virus 2019-08-28 Completed Universit y of Vaccine Quad .5 mL 00:00:00 [facility] 6+ MO Branch Influenza Virus 2019-08-28 Completed Universit y of Vaccine Quad .5 mL 00:00:00 [facility] 6+ MO Branch Pneumococcal 2019-05-01 Completed University o f Polysaccharide, 00:00:00 [place] [facility] PPSV23 (PNEUMOVAX) Branch Twinrix (hep a/hep 2019-05-01 Completed Univer sity of b) 00:00:00 [facility] Pneumococcal 2019-05-01 Completed University o f Polysaccharide, 00:00:00 [place] [facility] PPSV23 (PNEUMOVAX) Branch Twinrix (hep a/hep 2019-05-01 Completed Univer sity of b) 00:00:00 [facility] Pneumococcal 2019-05-01 Completed University o f Polysaccharide, 00:00:00 [place] [facility] PPSV23 (PNEUMOVAX) Branch Twinrix (hep a/hep 2019-05-01 Completed Univer sity of b) 00:00:00 [facility] Pneumococcal 2019-05-01 Completed University o f Polysaccharide, 00:00:00 [place] [facility] PPSV23 (PNEUMOVAX) Branch Twinrix (hep a/hep 2019-05-01 Completed Univer sity of b) 00:00:00 [facility] Pneumococcal 2019-05-01 Completed University o f Polysaccharide, 00:00:00 [place] [facility] PPSV23 (PNEUMOVAX) Branch Twinrix (hep a/hep 2019-05-01 Completed Univer sity of b) 00:00:00 [facility] Pneumococcal 2019-05-01 Completed University o f Polysaccharide, 00:00:00 [place] [facility] PPSV23 (PNEUMOVAX) Branch Twinrix (hep a/hep 2019-05-01 Completed Univer sity of b) 00:00:00 [facility] Pneumococcal 2019-05-01 Completed University o f Polysaccharide, 00:00:00 [place] [facility] PPSV23 (PNEUMOVAX) Branch Twinrix (hep a/hep 2019-05-01 Completed Univer sity of b) 00:00:00 [facility] Pneumococcal 2019-05-01 Completed University o f Polysaccharide, 00:00:00 [place] [facility] PPSV23 (PNEUMOVAX) Branch Twinrix (hep a/hep 2019-05-01 Completed Univer sity of b) 00:00:00 [facility] Pneumococcal 2019-05-01 Completed University o f Polysaccharide, 00:00:00 [place] [facility] PPSV23 (PNEUMOVAX) Branch Twinrix (hep a/hep 2019-05-01 Completed Univer sity of b) 00:00:00 [facility] Pneumococcal 2019-05-01 Completed University o f Polysaccharide, 00:00:00 [place] [facility] PPSV23 (PNEUMOVAX) Branch Twinrix (hep a/hep 2019-05-01 Completed Univer sity of b) 00:00:00 [facility] Pneumococcal 2019-05-01 Completed University o f Polysaccharide, 00:00:00 [place] [facility] PPSV23 (PNEUMOVAX) Branch Twinrix (hep a/hep 2019-05-01 Completed Univer sity of b) 00:00:00 [facility] Pneumococcal 2019-05-01 Completed University o f Polysaccharide, 00:00:00 [place] [facility] PPSV23 (PNEUMOVAX) Branch Twinrix (hep a/hep 2019-05-01 Completed Univer sity of b) 00:00:00 [facility] Pneumococcal 2019-05-01 Completed University o f Polysaccharide, 00:00:00 [place] [facility] PPSV23 (PNEUMOVAX) Branch Twinrix (hep a/hep 2019-05-01 Completed Univer sity of b) 00:00:00 [facility] Pneumococcal 2019-05-01 Completed University o f Polysaccharide, 00:00:00 [place] [facility] PPSV23 (PNEUMOVAX) Branch Twinrix (hep a/hep 2019-05-01 Completed Univer sity of b) 00:00:00 [facility] HEP B, Adult Dosage 2018-04-25 Completed Unive rsity of 00:00:00 [facility] HEP B, Adult Dosage 2018-04-25 Completed Unive rsity of 00:00:00 [facility] HEP B, Adult Dosage 2018-04-25 Completed Unive rsity of 00:00:00 [facility] HEP B, Adult Dosage 2018-04-25 Completed Unive rsity of 00:00:00 [facility] HEP B, Adult Dosage 2018-04-25 Completed Unive rsity of 00:00:00 [facility] HEP B, Adult Dosage 2018-04-25 Completed Unive rsity of 00:00:00 [facility] HEP B, Adult Dosage 2018-04-25 Completed Unive rsity of 00:00:00 [facility] Branch HEP B, Adult Dosage 2018-04-25 Completed Unive rsity of 00:00:00 [facility] Branch HEP B, Adult Dosage 2018-04-25 Completed Unive rsity of 00:00:00 [facility] HEP B, Adult Dosage 2018-04-25 Completed Unive rsity of 00:00:00 [facility] Branch HEP B, Adult Dosage 2018-04-25 Completed Unive rsity of 00:00:00 [facility] HEP B, Adult Dosage 2018-04-25 Completed Unive rsity of 00:00:00 [facility] Branch HEP B, Adult Dosage 2018-04-25 Completed Unive rsity of 00:00:00 [facility] Branch HEP B, Adult Dosage 2018-04-25 Completed Unive rsity of 00:00:00 [facility] Branch Twinrix (hep a/hep 2017-11-25 Completed Univer sity of b) 00:00:00 [facility] Branch Twinrix (hep a/hep 2017-11-25 Completed Univer sity of b) 00:00:00 [facility] Branch Twinrix (hep a/hep 2017-11-25 Completed Univer sity of b) 00:00:00 [facility] Branch Twinrix (hep a/hep 2017-11-25 Completed Univer sity of b) 00:00:00 [facility] Branch Twinrix (hep a/hep 2017-11-25 Completed Univer sity of b) 00:00:00 [facility] Branch Twinrix (hep a/hep 2017-11-25 Completed Univer sity of b) 00:00:00 [facility] Branch Twinrix (hep a/hep 2017-11-25 Completed Univer sity of b) 00:00:00 [facility] Branch Twinrix (hep a/hep 2017-11-25 Completed Univer sity of b) 00:00:00 [facility] Branch Twinrix (hep a/hep 2017-11-25 Completed Univer sity of b) 00:00:00 [facility] Branch Twinrix (hep a/hep 2017-11-25 Completed Univer sity of b) 00:00:00 [facility] Branch Twinrix (hep a/hep 2017-11-25 Completed Univer sity of b) 00:00:00 [facility] Branch Twinrix (hep a/hep 2017-11-25 Completed Univer sity of b) 00:00:00 [facility] Branch Twinrix (hep a/hep 2017-11-25 Completed Univer sity of b) 00:00:00 [facility] Branch Twinrix (hep a/hep 2017-11-25 Completed Univer sity of b) 00:00:00 [facility] Branch Twinrix (hep a/hep 2017-10-25 Completed Univer sity of b) 00:00:00 [facility] Pneumococcal 13 2017-10-25 Completed Universit y of Conjugate, PCV13 00:00:00 [place] [facility] (Prevnar 13) Branch TDAP (ADACEL) 2017-10-25 Completed University of VACCINE 00:00:00 [facility] Twinrix (hep a/hep 2017-10-25 Completed Univer sity of b) 00:00:00 [facility] Pneumococcal 13 2017-10-25 Completed Universit y of Conjugate, PCV13 00:00:00 [place] [facility] (Prevnar 13) Branch TDAP (ADACEL) 2017-10-25 Completed University of VACCINE 00:00:00 [facility] Branch Twinrix (hep a/hep 2017-10-25 Completed Univer sity of b) 00:00:00 [facility] Pneumococcal 13 2017-10-25 Completed Universit y of Conjugate, PCV13 00:00:00 [place] [facility] (Prevnar 13) Branch TDAP (ADACEL) 2017-10-25 Completed University of VACCINE 00:00:00 [facility] Twinrix (hep a/hep 2017-10-25 Completed Univer sity of b) 00:00:00 [facility] Pneumococcal 13 2017-10-25 Completed Universit y of Conjugate, PCV13 00:00:00 [place] [facility] (Prevnar 13) Branch TDAP (ADACEL) 2017-10-25 Completed University of VACCINE 00:00:00 [facility] Twinrix (hep a/hep 2017-10-25 Completed Univer sity of b) 00:00:00 [facility] Pneumococcal 13 2017-10-25 Completed Universit y of Conjugate, PCV13 00:00:00 [place] [facility] (Prevnar 13) Branch TDAP (ADACEL) 2017-10-25 Completed University of VACCINE 00:00:00 [facility] Twinrix (hep a/hep 2017-10-25 Completed Univer sity of b) 00:00:00 [facility] Pneumococcal 13 2017-10-25 Completed Universit y of Conjugate, PCV13 00:00:00 [place] [facility] (Prevnar 13) Branch TDAP (ADACEL) 2017-10-25 Completed University of VACCINE 00:00:00 [facility] Twinrix (hep a/hep 2017-10-25 Completed Univer sity of b) 00:00:00 [facility] Pneumococcal 13 2017-10-25 Completed Universit y of Conjugate, PCV13 00:00:00 [place] [facility] (Prevnar 13) Branch TDAP (ADACEL) 2017-10-25 Completed University of VACCINE 00:00:00 [facility] Twinrix (hep a/hep 2017-10-25 Completed Univer sity of b) 00:00:00 [facility] Pneumococcal 13 2017-10-25 Completed Universit y of Conjugate, PCV13 00:00:00 [place] [facility] (Prevnar 13) Branch TDAP (ADACEL) 2017-10-25 Completed University of VACCINE 00:00:00 [facility] Twinrix (hep a/hep 2017-10-25 Completed Univer sity of b) 00:00:00 [facility] Pneumococcal 13 2017-10-25 Completed Universit y of Conjugate, PCV13 00:00:00 [place] [facility] (Prevnar 13) Branch TDAP (ADACEL) 2017-10-25 Completed University of VACCINE 00:00:00 [facility] Twinrix (hep a/hep 2017-10-25 Completed Univer sity of b) 00:00:00 [facility] Pneumococcal 13 2017-10-25 Completed Universit y of Conjugate, PCV13 00:00:00 [facility] dical (Prevnar 13) Branch TDAP (ADACEL) 2017-10-25 Completed University of VACCINE 00:00:00 [facility] Twinrix (hep a/hep 2017-10-25 Completed Univer sity of b) 00:00:00 [facility] Pneumococcal 13 2017-10-25 Completed Universit y of Conjugate, PCV13 00:00:00 [place] [facility] (Prevnar 13) Branch TDAP (ADACEL) 2017-10-25 Completed University of VACCINE 00:00:00 [facility] Twinrix (hep a/hep 2017-10-25 Completed Univer sity of b) 00:00:00 [facility] Pneumococcal 13 2017-10-25 Completed Universit y of Conjugate, PCV13 00:00:00 [facility] dical (Prevnar 13) Branch TDAP (ADACEL) 2017-10-25 Completed University of VACCINE 00:00:00 [facility] Twinrix (hep a/hep 2017-10-25 Completed Univer sity of b) 00:00:00 [facility] Pneumococcal 13 2017-10-25 Completed Universit y of Conjugate, PCV13 00:00:00 [facility] dical (Prevnar 13) Branch TDAP (ADACEL) 2017-10-25 Completed University of VACCINE 00:00:00 [facility] Twinrix (hep a/hep 2017-10-25 Completed Univer sity of b) 00:00:00 [facility] Pneumococcal 13 2017-10-25 Completed Universit y of Conjugate, PCV13 00:00:00 [place] [facility] (Prevnar 13) Branch TDAP (ADACEL) 2017-10-25 Completed University of VACCINE 00:00:00 [facility] Vital Signs Vital Name Observation Time Observation Value Comments Source Systolic blood 2022-10-20 15:49:00 130 mm[Hg] Univer sity of pressure [facility] Diastolic blood 2022-10-20 15:49:00 68 mm[Hg] Unive rsity of pressure [facility] Heart rate 2022-10-20 15:49:00 82 /min Universi ty of [facility] Body temperature 2022-10-20 15:49:00 36.67 [place] Univ ersity of [facility] Respiratory rate 2022-10-20 15:49:00 18 /min Univ ersity of [facility] Body weight 2022-10-20 15:49:00 75.297 kg [facility]i [facility] of [facility] BMI 2022-10-20 15:49:00 30.36 kg/m2 Universi ty of [facility] Branch Systolic blood 2022-10-06 21:16:00 94 mm[Hg] Univer sity of pressure [facility] Diastolic blood 2022-10-06 21:16:00 64 mm[Hg] Unive rsity of pressure [facility] Heart rate 2022-10-06 21:16:00 96 /min Universi ty of [facility] Body temperature 2022-10-06 21:13:00 36.56 [place] Univ [facility] of [facility] Respiratory rate 2022-10-06 21:13:00 18 /min Univ ersity of [facility] Body height 2022-10-06 21:13:00 157.5 cm [facility]i [facility] of [facility] Body weight 2022-10-06 21:13:00 75.751 kg [facility] of [facility] [place] [facility] BMI 2022-10-06 21:13:00 30.54 kg/m2 Universi ty of [facility] Oxygen saturation in 2022-10-06 21:13:00 98 /min University of Arterial blood by [facility] Pulse oximetry Branch Systolic blood 2022-07-15 21:05:00 114 mm[Hg] Univer sity of pressure [facility] Diastolic blood 2022-07-15 21:05:00 75 mm[Hg] Unive rsity of pressure [facility] Heart rate 2022-07-15 21:05:00 99 /min [facility]i ty of [facility] Body temperature 2022-07-15 21:05:00 35.83 [place] Univ [facility] of [facility] Respiratory rate 2022-07-15 21:05:00 16 /min Univ ersity of [facility] Body weight 2022-07-15 21:05:00 70.126 kg [facility]i ty of [facility] BMI 2022-07-15 21:05:00 28.28 kg/m2 [facility] ty of [facility] Oxygen saturation in 2022-07-15 21:05:00 98 /min University of Arterial blood by [place] [facility] Pulse oximetry Branch Systolic blood 2022-06-23 13:05:00 109 mm[Hg] Univer sity of pressure [facility] Diastolic blood 2022-06-23 13:05:00 73 mm[Hg] Unive rsity of pressure [facility] Heart rate 2022-06-23 13:05:00 98 /min [facility] Body temperature 2022-06-23 13:05:00 36.61 [place] [facility] Respiratory rate 2022-06-23 13:05:00 18 /min Univ ersity of [facility] Body height 2022-06-23 13:05:00 157.5 cm [facility] of [facility] Body weight 2022-06-23 13:05:00 72.576 kg Universi [facility] of [facility] BMI 2022-06-23 13:05:00 29.26 kg/m2 [facility] Oxygen saturation in 2022-06-23 13:05:00 98 /min University of Arterial blood by [place] [facility] Pulse oximetry Branch Systolic blood 2022-04-25 23:40:00 120 mm[Hg] Univer sity of pressure [facility] Diastolic blood 2022-04-25 23:40:00 75 mm[Hg] Unive rsity of pressure [facility] Heart rate 2022-04-25 23:40:00 113 /min [facility] Body temperature 2022-04-25 23:40:00 36.61 [place] [facility] of [facility] Respiratory rate 2022-04-25 23:40:00 18 /min Univ ersity of [facility] Body height 2022-04-25 23:40:00 157.5 cm [facility] Body weight 2022-04-25 23:40:00 76.204 kg [facility] BMI 2022-04-25 23:40:00 30.73 kg/m2 [facility] Oxygen saturation in 2022-04-25 23:40:00 100 /min University of Arterial blood by [place] [facility] Pulse oximetry Branch Heart Rate 2022-11-11 08:44:00 105.00 /min Respiratory Rate 2022-11-11 08:44:00 18.00 /min BP Systolic 2022-11-11 08:44:00 102 mm[Hg] BP Diastolic 2022-11-11 08:44:00 67 mm[Hg] Weight Measured 2022-11-11 08:44:00 177.60 pounds Height Measured 2022-11-11 08:44:00 62.00 inches Body Temperature 2022-11-11 08:44:00 98.20 degrees Procedures Procedure Date / Time Performed Performing Clinician [facility] e SARS-COV-2 COVID-19 2022-10-06 21:56:40 [facility] VACCINE 12 YRS+, Medical Branch BIVALENT 0.5ML, IM (MODERNA BOOSTER) FLU VACC (), 2022-10-06 21:34:04 [facility] 6 MO-64 YRS, .5ML, IM, Medical B ranch QUAD (FLUCELVAX) ASSIGNMENT OF BENEFITS 2022-10-06 20:55:15 Doctor Unassigned, No [facility] Name Medical Branch Plan of Care Planned Activity Planned Date Details Comments Source Goal Plan of Care Note [code = 09934-9] Goal Plan of Care Note [code = 84517-9] Goal Plan of Care Note [code = 12210-8] Goal Plan of Care Note [code = 13644-7] Goal Plan of Care Note [code = 90108-3] Goal Plan of Care Note [code = 58260-4] Goal Plan of Care Note [code = 98690-4] Goal Plan of Care Note [code = 90169-9] Goal Plan of Care Note [code = 96742-4] Encounters Start End Encounter Admission Attending Care Care Encounter Source Date/Time Date/Time Type Type Clinicians Facility Department ID 2022-05-09 Outpatient [facility] [id number] [place] 21:23:06 [id number] [facility] 2020-02-28 Inpatient HCACL KIKI [id number] [facility] 16:15:00 92 [facility] 2022-11-11 2022-11-11 Outpatient HERI LIRIANO [id number] [place] 08:49:48 08:49:48 [id number] F [place] 2022-11-11 2022-11-11 Outpatient SFADOCS SFADOCS [id number] 00:00:00 00:00:00 Visit [id number] 2022-11-06 2022-11-06 Outpatient SFA SFA [id number] Shar 09:14:59 09:14:59 [id number] F Jackson 2022-10-30 2022-10-30 Outpatient R [facility] [id number] Univers 09:00[facility]00 [facility]00[facility] 2022-10-28 Telephone Leonel Arrieta [id number] Univers 00:00:00 00:00:00 Y PEDIATRIC [id number] [id number] [place] [id number] Branch [facility] 2022-10-20 2022-10-20 Office Leonel Arrieta 1.2.840.114 [id number] Univers 09:45:00 10:00:00 Visit Y PEDIATRIC 350.1.13.10 [id number] [address] Branch [facility] 2022-10-20 2022-10-20 Outpatient R LEONEL ARRIETA [facility] [id number] Univers 09:45:00 09:45:00 [facility]-06 2022-10-06 Office ELENA Garcia 1.2.933.286 [id number] [facility] 15:30:00 16:00:00 Visit [facility] 350.1.13.10 i ty of CL[place]ICS [place] [id number] [place] [address] Branch 2022-10-06 2022-10-06 Outpatient R JOSE [facility] [id number] Univers 15:30:00 15:30:00 [facility] 2022-10-06 2022-10-06 Orders Doctor GRIFFIN 1.2.840.114 [id number] Univers 00:00:00 00:00:00 Only Unassigned, LUIGI 350.1.13.10 ity of [facility] 4.2.7.2.686 Jeremi as [id number] [address] 2022-08-04 2022-08-04 Outpatient Mike GARCIA [facility] [id number] Univers 08:00:00 08:00:00 GAGAN [facility] 2022-07-15 2022-07-15 Outpatient [facility] [id number] Univers 16:20:00 23:59:00 JULI itduy [facility] 2022-07-15 2022-07-15 Hospital MARIA DE JESUS Fry 1.2.840.114 [id number] Univers 16:20:00 23:59:00 Encounter Juli PEDIATRIC 350.1.13.10 [place] [id number] [facility] [address] [facility] 2022-07-15 2022-07-15 Office MARIA DE JESUS Fry 1.2.840.114 [id number] Univers 16:00:00 16:30:00 Visit Juli PEDIATRIC 350.1.13.10 it[place] [id number] [facility] 314 [facility] 2022-07-15 2022-07-15 Outpatient R AWILDA [facility] [id number] Univers 16:00:00 16:00:00 [facility] 2022-07-14 2022-07-14 Outpatient LEONEL PINON [facility] [id number] Univers 09:30:00 09:30:00 ity [facility] 2022-07-10 2022-07-10 Nurse Nurse, Shandra PRETTY 1.2.840. 114 [id number] Univers 18:00:00 18:15:00 Visit Unknown, Attending PEDIATRIC 350.1.13. 10 it[place] [id number] [facility] 370 [facility] 2022-07-10 2022-07-10 Outpatient CHRISTIANA PEREA [facility] [id number] Univers 18:00:00 18:00:00 ity of [facility] 2022-07-07 2022-07-07 Telephone [facility] 1.2.840.114 [id number] Univers 00:00:00 00:00:00 [facility] 350.1.13.10 i ty of CL[place]ICS [place] [id number] [place] [address] [place] 2022-07-01 2022-07-01 [facility] 1.2.789.863 [id number] Univers 00:00:00 00:00:00 [facility] 350.1.13.10 ity of [place] [id number] [place] [address] [place] 2022-07-01 2022-07-01 Refill Joes [facility] 1.2.962.988 [id number] Univers 00:00:00 00:00:00 [facility] 350.1.13.10 i ty of [place] [id number] [place] [address] Hart 2022-06-23 2022-06-23 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 1.2.840.114 [id number] Univers 10:45:00 11:00:00 Visit Jose [facility] 350.1.13.10 ity of [place] [id number] [facility] [address] 2022-06-23 2022-06-23 Office [facility] 1.2.997.788 [id number] Univers 08:00:00 08:30:00 Visit [facility] 350.1.13.10 i ty of [place] [id number] [address] 2022-06-23 2022-06-23 Outpatient R [facility] [id number] Univers 08:00:00 08:00:00 GAGAN ity of [facility] 2022-06-16 2022-06-16 Outpatient R [facility] [id number] Univers 08:00:00 08:00:00 GAGAN mcdermott [facility] 2022-05-26 2022-05-26 Laboratory Only, Shandra Sarah Test MARIA DE JESUS 1.2.8 40.114 [id number] Univers 19:00:00 19:15:00 Only Unknown, Attending PEDIATRIC 350.1.13. 10 it[place] [id number] [address] CARE CLINIC 2022-05-26 2022-05-26 Outpatient R HALEY, [facility] [id number] Univers 19:00:00 19:12:24 WEIDAISY mcdermott o f [facility] 2022-05-15 2022-05-15 Outpatient [facility] [id number] Univers 08:30:00 08:30:00 [facility] 2022-05-09 2022-05-10 Emergency X CARLEEN, [facility] ERT [id number] Univers 01:44:00 03:27:00 MARLENE mcdermott [facility] 2022-05-09 2022-05-10 Emergency Carleen, Marlene E TRAUMA 1.2.840 .114 [id number] Univers 01:44:00 03:27:00 Leonel Dorsey [facility] 350.1.13. 10 [place] [id number] [address] 2022-05-08 2022-05-08 Emergency X SHABBIR, [facility] ERT [id number] Univers 17:41:00 22:31:00 KAREN mcdermott [facility] 2022-05-08 2022-05-08 Emergency [facility] 1.2.780.245 [id number] Univers 17:41:00 22:31:00 [facility] 350.1.13.10 it y of [place] [facility] [id number] [address] ([facility]) 2022-05-06 2022-05-06 Outpatient R [facility] [id number] Univers 16:00:00 16:00:00 BOZENA mcdermott [facility] 2022-05-05 2022-05-05 Outpatient R CAILIN, [facility] [id number] Univers 13:45:00 13:45:00 CRYSTAL ity of [facility] 2022-05-04 2022-05-04 Transition MccloudCHRISTIERudy 1.2.840.114 [id number] Univers 00:00:00 00:00:00 of Care Aliza MCGHEE 350.1.13.10 i ty of [place] [id number] [facility] [address] 2022-05-04 2022-05-04 RefELENA Amin 1.2.518.405 [id number] Univers 00:00:00 00:00:00 [facility] 350.1.13.10 ity of [place] [id number] [facility] [address] 2022-04-26 2022-05-01 Inpatient X RACHEL RED [facility] [id number] Univers 16:00:00 13:30:00 RACHEL RED itduy [facility] 2022-04-26 2022-05-01 [facility] Deidra Engel [facility] 1.2.840. 114 [id number] Univers 16:00:00 13:30:00 Encounter [facility] 350.1.13.10 ity of [place] 4.2.7.2.686 [place] [id number] [address] ([facility]) 2022-04-27 2022-04-27 Outpatient Mike DARBY [facility] [id number] Univers 13:30:00 13:30:00 CHAD mcdermott [facility] 2022-04-25 2022-04-25 Nurse Nurse, Shandra Urgent MARIA DE JESUS 1.2.840. 114 [id number] Univers 18:45:00 19:00:00 Visit Radha Simpson PEDIATRIC 350.1 .13.10 [place] [id number] [facility] PRIMARY [address] CARE CLINIC 2022-04-25 2022-04-25 Urgent Care, Shandra Urgent MARIA DE JESUS 1.2.840.1 14 [id number] Univers 18:45:00 19:00:00 Care Radha Simpson PEDIATRIC 350.1 .13.10 it[place] [id number] [place] [address] Branch CARE CLINIC 2022-04-25 2022-04-25 Outpatient R KARLA [facility] [id number] Univers 18:45:00 18:45:00 SRADHA it y of [facility] 2022-04-25 2022-04-25 Outpatient R GROW, [facility] [id number] Univers 18:45:00 18:45:00 WEI ity o f [facility] 2022-04-22 2022-04-22 Outpatient R UNKNOWN, [facility] [id number] Univers 17:15:00 17:15:00 ATTENDING [facility] 2022-04-20 2022-04-20 Outpatient R LEONEL ARRIETA [facility] [id number] Univers 15:45:00 16:26[facility]-20 2022-04-20 Office Leonel Arrieta 1.2.840.114 [id number] Univers 15:45:00 16:26:47 Visit Y PEDIATRIC 350.1.13.10 it[place] [id number] [place] [address] Branch [facility] 2022-01-13 2022-01-15 [facility] G001 [id number] [facility] 13:06:00 12:19:00 an, 00 [facility] 2021-11-06 2021-11-06 Outpatient R ROSEY [facility] [id number] Univers 08:20:00 08:20:00 PAIGE [facility] 2021-11-06 2021-11-06 Outpatient R ROSEY [facility] [id number] Univers 08:20:00 08:20:00 [facility] 2021-10-27 2021-10-27 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 1.2.840.114 [id number] Univers 16:45:00 17:00:00 Visit Chad Darby [facility] 350.1.13. 10 ity of [place] [id number] [facility] [address] 2021-10-27 2021-10-27 Outpatient R WILNER [facility] [id number] Univers 16:45:00 16:45:00 [facility] 2021-10-27 2021-10-27 Office Jesus Yonmaczander UN[facility]ERSIT 1.2.840.11 [id number] Univers 15:30:00 16:00:00 Visit Chad Darby [facility] 350.1.13. 10 ity of CL[place] [id number] [place] [address] Branch 2021-10-27 2021-10-27 Outpatient R WILNER [facility] [id number] Univers 15:30:00 15:30:00 [facility] 2021-10-27 2021-10-27 Outpatient R WILNER [facility] [id number] Univers 15:30:00 15:30:00 [facility] 2021-10-23 2021-10-23 Outpatient R [facility] [id number] Univers 14:30:00 14:30:00 [facility] 2021-10-16 2021-10-16 Outpatient R PB [facility] [id number] Univers 08:00:00 08:00:00 , KORIN sullivan y [facility] 2021-09-14 2021-09-14 Emergency X JER LOPEZ [facility] ERT [id number] Univers 00:06:00 02:14:00 JER LOPEZ [facility] 2021-09-14 2021-09-14 Emergency Daniel [facility] 1.2.638.814 [id number] Univers 00:06:00 02:14:00 [facility] 350.1.13.10 it[place] of [place] [id number] [place] [address] Branch (CLC) 2021-09-04 2021-09-04 Outpatient R [facility] [id number] Univers 13:00:00 13:00:00 ity of [facility] 2021-08-18 2021-08-18 Orders Doctor ELIAS 1.2.840.114 [id number] Univers 00:00:00 00:00:00 Only Unassigned, LUIGI 350.1.13.10 ity of [place] [facility] 4.2.7.2.686 Jeremi as [id number] [place] [address] Branch 2021-08-06 2021-08-06 Outpatient R JOSEPH [facility] [id number] Univers 15:00:00 15:00:00 SONA mcdermott [facility] 2021-07-31 2021-07-31 Office [facility] 1.2.543.098 [id number] Univers 13:01:19 13:42:53 Visit Rachel LACKEY 350.1.13.10 ity of [facility] [place].2.7.2.[place] AT [id number] [address] 2021-07-31 2021-07-31 Outpatient R [facility] [id number] Univers 13:10:00 13:10:00 RACHEL mcdermott [facility] 2021-07-31 2021-07-31 Forming Mill Operator [facility] 1.2.840.114 [id number] Univers 10:38:16 10:53:16 Visit Paige Currie 350.1.13. 10 it[place] of [place] C[place] [id number] [facility] AND MCLEAN [address] [facility] 2021-07-31 2021-07-31 Office Rosey DEANA 1.2.840.114 [id number] Univers 10:07:00 10:39:07 Visit Paige HERNÁNDEZ 350.1.13.10 ity of [place] [id number] [facility] [address] [facility] 2021-07-21 2021-07-21 Patient Pb Pretty 1.2.840.114 [id number] Univers 00:00:00 00:00:00 Secure Msg , Korin Pediatric 350.1.13.10 ity of [place] [id number] [facility] 314 [facility] 2021-07-18 2021-07-18 [facility] [place] Maria De Jesus 1.2.840.114 [id number] Univers 09:05:00 23:59:00 Encounter , Korin Pediatric 350.1.13.10 ity of [place] and [place]2.[place].2.[place] [id number] [facility] 809 [facility] 2021-07-18 2021-07-18 Office Pb Pretty 1.2.840.114 [id number] Univers 08:36:04 08:51:04 Visit , Korin Pediatric 350.1.13.10 ity of [place] and [place]2.[place] [id number] [facility] 314 [facility] 2021-07-18 2021-07-18 Outpatient R PB [facility] [id number] Univers 08:30:00 08:30:00 , KORIN it y [facility] 2021-07-13 2021-07-13 Emergency EM Nwoye, HCACL AERS [id number] [facility] 14:40:00 19:23:00 Gilberto 06 [facility] 2021-07-11 2021-07-11 Outpatient R STEFANIE, [facility] [id number] Univers 07:45:00 07:45:00 LARRY ity [facility] 2021-07-10 2021-07-10 Outpatient R UNKNOWN, [facility] [id number] Univers 18:00:00 18:00:00 ATTENDING ity [facility] 2021-07-10 2021-07-10 Outpatient R UNKNOWN, [facility] [id number] Univers 18:00:00 18:00:00 ATTENDING ity [facility] 2021-07-10 2021-07-10 Urgent Juli Fry 1.2.840.1 14 [id number] Univers 17:25:08 17:40:08 Care Unknown, Attending Pediatric 350.1.13. 10 ity of [place] [id number] [address] 2021-07-10 2021-07-10 Urgent Juli Fry 1.2.840.1 14 [id number] Univers 17:25:08 17:40:08 Care Unknown, Attending Pediatric 350.1.13. 10 ity of [place] and [place].2.[place] [id number] [address] 2021-07-07 2021-07-07 Outpatient R STEFANIE [facility] [id number] Univers 14:15:00 14:15:00 LARRY ity [facility] 2021-07-04 2021-07-04 Telephone [facility] 1.2.840.114 [id number] Univers 00:00:00 00:00:[address] [facility] 350.1.13.10 it y [place] [id number] [address] Office Building 2021-07-04 2021-07-04 Telephone [facility] 1.2.840.114 [id number] Univers 00:00:00 00:00:00 [facility] 350.1.13.10 it [place] [id number] [address] Office Building 2021-06-16 2021-06-16 Office Leonel Arrieta 1.2.840.114 [id number] Univers 10:49:24 11:04:24 Visit Y Pediatric 350.1.13.10 ity of s and [place]2.[place] [id number] [address] 2021-06-16 2021-06-16 Outpatient LEONEL PINON [facility] [id number] Univers 10:45:00 10:45:00 ity [facility] 2021-06-09 2021-06-09 Forming Mill Operator Draw, Clc-Bls Lab [facility] 1.2.8 40.114 [id number] Univers 08:57:35 09:12:35 Visit Larry Watts [facility] 350.1.13.10 it[place] [id number] [address] Office Building 2021-06-09 2021-06-09 Office [facility] 1.2.840.114 [id number] Univers 07:53:24 08:55:[address] [facility] 350.1.13.10 it y [place] [id number] [address] Office Building 2021-06-09 2021-06-09 Outpatient [facility] [id number] Univers 07:30:00 07:30:00 LARRY ity [facility] 2021-06-05 2021-06-05 Hospital [facility] 1.2.647.836 [id number] Univers 16:45:00 23:59:00 Encounter Larry SPECIALTY 350.1.13.10 ity of CARE [place].2.[place] AT [id number] Pa livia SHARPE 806 [facility] 2021-06-05 2021-06-05 Outpatient [facility] [id number] Univers 00:00:00 00:00:00 LARRY ity [facility] 2021-06-02 2021-06-02 Forming Mill Operator Draw, Clc-Bls Lab [facility] 1.2.8 40.114 [id number] Univers 12:32:56 12:47:56 Visit Larry Watts [facility] 350.1.13.10 [place] [id number] [address] Office Building 2021-06-02 2021-06-02 Outpatient R [facility] [id number] Univers 12:45:00 12:45:00 LARRY ity [facility] 2021-05-29 2021-05-29 Outpatient R ERON [facility] [id number] Univers 09:30:00 09:30:00 NATI sulilvany o f [facility] 2021-05-29 2021-05-29 Telephone [facility] 1.2.840.114 [id number] Univers 00:00:00 00:00:00 [facility] 350.1.13.10 it [place] [id number] [facility][note 2] [address] Office Building 2021-05-05 2021-05-05 Outpatient R LEONEL ARRIETA [facility] [id number] Univers 10:00:00 10:00:00 ity of [facility] 2021-04-28 2021-04-28 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 1.2.840.114 [id number] Univers 16:20:03 16:46:05 Visit [facility] 350.1.13. 10 ity of CL[place] [id number] [facility] [address] 2021-04-28 2021-04-28 Office ELENA Darby 1.2.061.171 [id number] Univers 16:00:35 16:30:35 [facility] 350.1.13.10 ity of [place] [id number] [facility] [address] 2021-04-28 2021-04-28 Outpatient Mike DARBY [facility] [id number] Univers 16:00:00 16:00:00 CHAD mcdermott [facility] 2021-04-24 2021-04-24 Hospital Leonel Arrieta 1.2.840.114 [id number] Univers 14:58:13 23:59:00 Encounter Y Pediatric 350.1.13.10 ity of [place] and [place].2.[place] [id number] [facility] 809 [address] Care Clinic 2021-04-24 2021-04-24 Office Leonel Arrieta 1.2.840.114 [id number] Univers 11:03:31 12:22:06 Visit Y Pediatric 350.1.13.10 ity of [place] and [place].2.7.2.[place] [id number] [address] 2021-04-24 2021-04-24 Outpatient R LEONEL ARRIETA [facility] [id number] Univers 11:30:00 11:30:00 ity [facility] 2021-01-31 2021-01-31 Telephone Leonel Arrieta 1.2.840.114 [id number] Univers 00:00:00 00:00:00 Y Pediatric 350.1.13.10 ity of [place] and [place].2.[place] [id number] [address] 2021-01-30 2021-01-30 Office ArrietaLeonel juarez 1.2.840.114 [id number] Univers 16:02:43 16:52:25 Visit Y Pediatric 350.1.13.10 ity of s and 4[place]2.7.2.[place] [id number] [address] 2021-01-30 2021-01-30 Outpatient R LEONEL ARRIETA [facility] [id number] Univers 16:00:00 16:00:00 ity [facility] 2021-01-23 2021-01-23 Patient Nick [facility] 1.2.840.114 [id number] Univers 00:00:00 00:00:00 Outreach Darryl PRIMARY 350.1.13.10 i ty of [place] [id number] [address] 2021-01-17 2021-01-17 Urgent Christiana Esteban 1.2.840.11 [id number] Univers 17:27:43 17:42:43 Care Unknown, Attending Pediatric 350.1.13. 10 ity of [place] and [place].2.[place] [id number] [address] 2021-01-17 2021-01-17 Outpatient R THEODORA [facility] [id number] Univers 17:30:00 17:30:00 ATTENDING ity [facility] 2021-01-17 2021-01-17 Telephone Leonel Arrieta 1.2.840.114 [id number] Univers 00:00:00 00:00:00 Y Pediatric 350.1.13.10 ity of [place] and [place].2.7.2.[place] [id number] [facility] [address] Care Clinic 2021-01-14 2021-01-14 Telephone WilnerELENA 1.2.840.114 [id number] Univers 00:00:00 00:00:00 [facility] 350.1.13.10 ity of CL[place] 4.2.[place] [id number] [place] [address] Branch 2020-12-30 2020-12-30 Urgent Juli Fry 1.2.840.1 14 [id number] Univers 17:55:14 18:10:14 Care Unknown, Attending Pediatric 350.1.13. 10 ity of [place] and [place].2.7.2.[place] [id number] [facility] [address] Care Clinic 2020-12-30 2020-12-30 Outpatient R UNKNOWN, [facility] [id number] Univers 18:00:00 18:00:00 ATTENDING ity of [facility] 2020-12-30 2020-12-30 Telephone Maria De Jesus Fry 1.2.840.114 [id number] Univers 00:00:00 00:00:00 Juli Pediatric 350.1.13.10 ity of [place] and [place].2.[place] [id number] [facility] [address] Care Clinic 2020-11-20 2020-11-20 Telephone Stefanie [facility] 1.2.840.114 [id number] Univers 00:00:00 00:00:00 Larry ID [employer] 350.1.13.10 it [place] [id number] [address] Office Building 2020-11-12 2020-11-12 [facility]phone [facility] 1.2.840.114 [id number] Univers 00:00:00 00:00:00 Larry [facility] 350.1.13.10 it [place] [id number] [address] Office Building 2020-11-07 2020-11-07 Office Stefanie [facility] 1.2.840.114 [id number] Univers 14:36:26 15:22:56 Visit Larry ID [employer] 350.1.13.10 it y [place] [id number] [address] Office Building 2020-11-07 2020-11-07 Outpatient [facility] [id number] Univers 14:30:00 14:30:00 LARRY mcdermott [facility] 2020-10-28 2020-10-28 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 1.2.840.114 [id number] Univers 16:48:39 17:03:39 Visit Wilner Humble [facility] 350.1.13. 10 ity of CLINICS [place] [id number] [address] 2020-10-28 2020-10-28 Office ELENA Darby 1.2.424.586 [id number] Univers 16:29:42 16:44:43 Visit [facility] 350.1.13.10 ity of CL[place]ICS [place] [id number] [address] 2020-10-28 2020-10-28 Outpatient R WILNER [facility] [id number] Univers 16:30:00 16:30:00 CHAD mcdermott [facility] 2020-10-10 2020-10-10 Telephone Leonel Arrieta 1.2.840.114 [id number] Univers 00:00:00 00:00:00 Y Pediatric 350.1.13.10 ity of s and [place].2.[place] [phone] [place] [address] Branch Care [facility] 2020-08-29 2020-08-29 Office Leonel Arrieta 1.2.840.114 [id number] Univers 13:15:54 14:28:25 Visit Y Pediatric 350.1.13.10 ity of s and 4[place] [id number] [place] [address] [facility] 2020-08-29 2020-08-29 Outpatient R LEONEL ARRIETA [facility] [id number] Univers 13:30:00 13:30:00 ity of [facility] 2020-08-17 2020-08-17 Laboratory Lab, Adc Fam Pob I [facility] 1.2. 840.114 [id number] Univers 08:15:44 11:11:30 Only Gatito Mixon [facility] 350.1.13.10 ity of [place] 4.2.7.2.686 Jeremi as Professio [id number] Pa dical nal [address] [facility] 2020-08-17 2020-08-17 Outpatient R KEVEN [facility] [id number] Univers 08:20:00 08:20:00 [facility] 2020-08-12 Telephone ArrietaLeonel juarez 1..840.114 [id number] Univers 00:00:00 00:00:00 Y Pediatric 350.1.13.10 [place] [id number] [facility] Primary 314 [facility] 2020-07-26 2020-07-26 Outpatient R JESUS [facility] [id number] Univers 09:45:00 09:45:00 NASEEM [facility] 2020-07-04 2020-07-04 Outpatient R JESUS [facility] [id number] Univers 16:30:00 16:30:00 NASEEM [facility] 2020-07-01 2020-07-01 Outpatient R KAVEH [facility] [id number] Univers 10:00:00 10:00:00 [facility] 2020-06-04 [facility]..[id number] [id number] Univers 00:00:00 00:00:00 Lenny MULTISPEC 350.1.13.10 [place] [id number] [facility] AND ANASTACIO [facility] [facility] 2020-06-03 2020-06-03 Office ArrietaLeonel juarez 1.2.840.114 [id number] Univers 08:31:52 09:15:20 Visit Y Pediatric 350.1.13.10 [place] [id number] [facility] Primary [address] [facility] 2020-06-03 2020-06-03 Outpatient R LEONEL ARRIETA [facility] [id number] Univers 08:30:00 08:30:00 ity of [facility] 2020-06-03 2020-06-03 Telemedici Sarah [facility] 1.2.840.114 [id number] Univers 07:33:42 08:03:42 ne Visit Lenny CRUZPEC 350.1.13.10 [place] [phone] [facility] AND [address] DIABETES CLINIC 2020-06-03 2020-06-03 Orders Doctor ELIAS 1.2.840.114 [id number] Univers 00:00:00 00:00:00 Only Unassigned, LUIGI 350.1.13.10 ity of [facility] 4.2.7.2.686 Jeremi as [phone] [place] [address] Branch 2020-05-27 2020-05-27 Outpatient R [facility] [id number] Univers 09:00:00 09:00:00 LENNY ity of [facility] 2020-05-27 2020-05-27 [facility] [id number] Univers 00:00:00 00:00:00 Lenny CRUZPEC 350.1.13.10 [place] [phone] [facility] AND [address] DIABETES CLINIC 2020-04-29 2020-04-29 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 1.2.840.114 [id number] Univers 14:36:36 14:51:36 Visit Chad Darby Y HEALTH 350.1.13. 10 ity of CLINICS [place] [phone] [place] [address] Branch 2020-04-29 2020-04-29 Office ELENA Darby 1.2.051.626 [id number] Univers 13:41:40 14:32:47 Visit Chad Andrews HEALTH 350.1.13.10 ity of CLINICS [place] [phone] [facility] [address] 2020-04-29 2020-04-29 Outpatient R [facility] [id number] Univers 13:30:00 13:30:00 CHAD ity [facility] 2020-04-09 2020-04-09 Telephone Leonel Arrieta 1.2.840.114 [id number] Univers 00:00:00 00:00:00 Y Pediatric 350.1.13.10 ity of [place] [phone] [place] [address] [facility] 2020-02-14 2020-02-14 Outpatient R [facility] [id number] Univers 14:30:00 14:30:00 LENNY ity [facility] 2020-02-14 2020-02-14 Outpatient R [facility] [id number] Univers 14:30:00 14:30:00 ity of [facility] 2020-02-14 2020-02-14 [facility] 1.2.840.114 [id number] Univers 08:06:00 08:36:00 ne Visit MULTISPEC 350.1.13.10 ity [place] [phone] [facility] AND ANASTACIO [address] [place] [address] DIABETES CLINIC 2020-02-14 2020-02-14 [facility]medici [facility] 1.2.840.114 [id number] 08:06:00 08:36:00 ne Visit MULTISPEC 350.1.13.10 [place] 4.2.7.2.686 [place] [phone] AND ANASTACIO [facility]ETES [facility]IN[facility] 2020-02-14 2020-02-14 Orders Doctor GRIFFIN 1.2.840.114 [id number] Univers 00:00:00 00:00:00 Only Unassigned, LUIGI 350.1.13.10 ity of [facility] 4.2.7.2.686 Jeremi as [phone] [facility] [address] 2020-01-14 2020-01-14 Outpatient R [facility] [id number] Univers 20:00:00 20:00:00 LENNY ity of [facility] 2020-01-14 2020-01-14 [facility] 1.2.840.114 [id number] 00:00:00 00:00:00 Only Lenny MULTISPEC 350.1.13.10 [place] 4.2.7.2.686 [place] [phone] AND ANASTACIO [facility] 2020-01-14 2020-01-14 [facility] 1.2.840.114 [id number] Univers 00:00:00 00:00:00 Only Lenny CRUZPEC 350.1.13.10 [place] [id number] [facility] AND [address] [facility]ES [facility] 2020-01-12 2020-01-12 Forming Mill Operator Lab, Web [facility] 1.2.840.114 [id number] 15:43:08 18:13:08 Visit Sleep CLEAR 350.1.13.10 [place] 4.2.7.2.686 PSYCHIATR [phone] Y 193 2020-01-12 2020-01-12 Forming Mill Operator Lab, Web Sleep [facility] 1.2.840. 114 [id number] Univers 15:43:08 18:13:08 Visit Lenny Smith CLEAR 350.1.13.10 ity of [place] 4.2.7.2.[place] PS[place] [phone] Me dical Y [address] 2019-12-13 2019-12-13 Telephone Sarah [facility] 1.2.482.713 [id number] 00:00:00 00:00:00 Lenny CRUZPEC 350.1.13.10 [place] 4.2.7.2.686 [place] [id number] AND ANASTACIO [facility] 2019-12-13 2019-12-13 Telephone Sarah [facility] 1.2.596.115 [id number] Univers 00:00:00 00:00:00 Lenny MULTISPEC 350.1.13.10 [place] [id number] [facility] [address] DIABETES CLINIC 2019-12-06 2019-12-06 Orders Doctor ELIAS 1.2.840.114 [id number] Univers 00:00:00 00:00:00 Only Unassigned, LUIGI 350.1.13.10 ity of [facility] 4.2.7.2.686 Jeremi as [phone] [address] 2019-11-28 2019-11-28 Telephone Leonel Arrieta 1.2.840.114 [id number] Univers 00:00:00 00:00:00 Y Pediatric 350.1.13.10 ity of [place].2.[place] [phone] [address] 2019-06-27 2019-06-27 Office JOY Bowen 1.2.840.114 [id number] Univers 10:22:02 11:20:31 Visit [facility] ID [employer] 350.1.13.10 it y of Mikhail [place]2.[place] [phone] [facility] [place][note 2] [address] Office Building 2019-06-27 2019-06-27 Orders Doctor ELIAS 1.2.840.114 [id number] Univers 00:00:00 00:00:00 Only Unassigned, LUIGI 350.1.13.10 ity of [facility] 4.2.7.2.686 Jeremi as [phone] [address] 2019-06-13 2019-06-13 Orders Doctor ELIAS 1.2.840.114 [id number] Univers 00:00:00 00:00:00 Only Unassigned, LUIGI 350.1.13.10 ity of [facility] 4.2.7.2.686 Jeremi as [phone] [address] 2019-06-09 2019-06-09 Office Leonel Arrieta 1.2.840.114 [id number] Univers 09:06:37 09:43:25 Visit Y Pediatric 350.1.13.10 ity of [place] [id number] [address] 2019-05-01 2019-05-01 Outpatient R [facility] [id number] Univers 16:45:00 16:45:00 CHAD mcdermott [facility] Results Test Description Test Time Test Comments Results Result Comments Source CT/NG, NAAT, URINE 2022-11-12 19:40:03 Test Item Value Reference Range Interpretation Comme nts GONORRHEA, NAAT (test code = NEGATIVE NEGATIVE Note: Testing is performed with 43104) Syntaxin ALEXUS 680 systems using real-time polymerase chain reaction (PCR) method. CHLAMYDIA, NAAT (test code = NEGATIVE NEGATIVE Note: Testing is performed with 44364) Vincent [employer] 680 systems using real-time polymerase chain reaction (PCR) method. VAGINAL PATHOGENS DNA [id number] 13:59:28 Test Item Value Reference Range Interpretation Comments ION SPECIES NEGATIVE NEGATIVE (test code = ) G. VAGINALIS POSITIVE NEGATIVE A (test code = ) T. VAGINALIS POSITIVE NEGATIVE A Note: The BD A ffirm VPIII (test code = Microbial Ident ification ) Testis a DNA pr obe test intended for us e in the detectionand id entification of Ion spec ies, Gardnerellavagi nalis and Trichomonas vag inalis nucleic acid. U NLESS OTHERWISE INDIC ATED, ALL TESTING PERFORM ED ATCLINICAL PATHOLOGY LABOR [facility] [address] [place] [id number] LABORATOR Y DIRECTOR: TERENCE CARRILLO M.D. CLIA NUMBER [id number] CAP ACCREDITATION N O. [id number] HEPATITIS PANEL, [id number] 04:46:44 Test Item Value Reference Range Interpretation Comments HEPATITIS A IgM (test NON-REACTIVE NON-REACTIVE code = 59621) HEPATITIS B CORE IgM NON-REACTIVE NON-REACTIVE (test code = 4644) HEPATITIS B SURF AG NON-REACTIVE NON-REACTIVE (test code = 2739) HEPATITIS C ANTIBODY NON-REACTIVE NON-REACTIVE (test code = 4675) INTERPRETATION (NOTE) Hepatitis A HEPATITIS A: (test serology shows no code = 2552) evidence of acu te hepatitis A. INTERPRETATION (NOTE) Hepatitis B HEPATITIS B: (test serology shows no code = 82817) evidence of ac [place] hepatitis B and no indication of exposure to hepatitis B vir us in the previous si xto eight months. INTERPRETATION (NOTE) Hepatitis C HEPATITIS C: (test serology shows no code = 39609) evidence of ex posure to hepatitisC v irus at this time. I t can take up to 12 m onths after exposure tothe hepatitis C vir us for antibodies to become detectab le in the blood in ce rtain patients. UNLES S OTHERWISE INDIC ATED, ALL TESTING PERFORMED [facility], [facility]. [address] [place] [id number] [place] [address] DIRECTOR: TERENCE GOYAL M.D. CLIA NUMBER [id number] [place] [id number] 04:38:16 Test Item Value Reference Range Interpretation Comments RPR RESULT (test code = NON-REACTIVE NON-REACTIVE 3501) RPR TITER (test code = 3500) NOT INDIC. TITER NOT INDIC. CHLAMYDIA GC DNA BY [id number] 11:10:00 Test Item Value Reference Range Interpretation Comments C. TRACHOMATIS DNA BY Negative Negative PCR (test code = CHLAMTDNA) N. GONORRHOEAE DNA BY Negative Negative Perfor med At: HD PCR (test code = [facility] Mono [id number] [address]) [place], [place] [id number] Barba MD Ph:[phone] [place] [id number] 10:15:00 Test Item Value Reference Range Interpretation Comments CA 125 (test 328.0 U/mL 0.0-38.1 A Vincent [employer] cs code = Electrochemilum inescence CA125) Immunoassay(ECL IA)Values obtained with d ifferent assay methods or kits cannotbe used interchangeably . Results cannot be interpreted asabsolute evidence of the presence or absence of malignantdiseas e.Performed At: HD [facility] luh05[address] [place], [place] [id number] aBrba MD Ph:[phone] BASIC METABOLIC [id number] 08:09:00 Test Item Value Reference Range Interpretation Comments SODIUM (test code = NA) 142 mEq/L 134-147 N POTASSIUM (test code = 4.3 mEq/L 3.4-5.0 N K) CHLORIDE (test code = 108 mEq/L 100-108 N CL) CARBON DIOXIDE (test 25 mEq/l 21-33 N code = CO2) ANION GAP (test code = 14 0-20 N GAP) GLUCOSE (test code = 89 mg/dL 70-110 N GLU) BLOOD UREA NITROGEN 10 mg/dL 7-18 N (test code = BUN) GLOMERULAR FILTRATION 68.3 95-105 L Units of measure = RATE (test code = GFR) ml/mi n/1.73 m2 CREATININE (test code = 0.9 mg/dL 0.6-1.3 N CREAT) CALCIUM (test code = 9.1 mg/dL 8.0-10.5 N CA) CBC W/AUTO [id number] 07:28:00 Test Item Value Reference Range Interpretation Comments WHITE BLOOD CELL (test code = 6.7 x10 3/uL 4.5-11.0 N WBC) RED BLOOD CELL (test code = 3.43 x10 6/uL 3.54-5.02 L RBC) HEMOGLOBIN (test code = HGB) 10.7 g/dL 11.0-15.0 L HEMATOCRIT (test code = HCT) 33.9 % 33.0-45.0 N MEAN CELL VOLUME (test code = 98.8 fL 81.0-99.0 N MCV) MEAN CELL HGB (test code = MCH) 31.2 pg 27.0-33.0 N MEAN CELL HGB CONCETRATION 31.6 g/dL 33.0-37.0 L (test code = MCHC) RED CELL DISTRIBUTION WIDTH CV 13.0 % 11.5-14.5 N (test code = RDW) PLATELET COUNT (test code = 396 x10 3/uL 150-400 N PLT) NEUTROPHIL % (test code = NT%) 68.0 % 56.0-77.0 N LYMPHOCYTE % (test code = LY%) 20.5 % 14.0-32.0 N NEUTROPHIL # (test code = NT#) 4.54 x10 3/uL 2.0-7.6 N LYMPHOCYTE # (test code = LY#) 1.37 x10 3/uL 1.0-3.8 N MANUAL DIFF REQUIRED (test code NO = MDIFF) RED CELL DISTRIBUTION WIDTH SD 47.1 fL 37.0-54.0 N (test code = RDW-SD) MEAN PLATELET VOLUME (test code 8.7 fL 7.0-9.0 N = MPV) IMMATURE GRANULOCYTE % (test 0.7 % 0.0-2.0 N code = IG%) MONOCYTE % (test code = MO%) 5.2 % 4.8-9.0 N EOSINOPHIL % (test code = EO%) 4.9 % 0.3-3.7 H BASOPHIL % (test code = BA%) 0.7 % 0.0-2.0 N NUCLEATED RBC % (test code = 0.0 % 0-0 N NRBC%) IMMATURE GRANULOCYTE # (test 0.05 x10 3/uL 0.00-0.03 H code = IG#) MONOCYTE # (test code = MO#) 0.35 x10 3/uL 0.1-0.8 N EOSINOPHIL # (test code = EO#) 0.33 x10 3/uL 0.0-0.2 H BASOPHIL # (test code = BA#) 0.05 x10 3/uL 0.0-0.2 N NUCLEATED RBC # (test code = 0.00 x10 3/uL 0.0-0.1 N NRBC#) BASIC METABOLIC [id number] 07:55:00 Test Item Value Reference Range Interpretation Comments SODIUM (test code = NA) 144 mEq/L 134-147 N POTASSIUM (test code = 3.7 mEq/L 3.4-5.0 N K) CHLORIDE (test code = 107 mEq/L 100-108 N CL) CARBON DIOXIDE (test 27 mEq/l 21-33 N code = CO2) ANION GAP (test code = 14 0-20 N GAP) GLUCOSE (test code = 87 mg/dL 70-110 N GLU) BLOOD UREA NITROGEN 11 mg/dL 7-18 N (test code = BUN) GLOMERULAR FILTRATION 78.3 95-105 L Units of measure = RATE (test code = GFR) ml/mi n/1.73 m2 CREATININE (test code = 0.8 mg/dL 0.6-1.3 N CREAT) CALCIUM (test code = 8.7 mg/dL 8.0-10.5 N CA) CBC W/AUTO [id number] 07:33:00 Test Item Value Reference Range Interpretation Comments WHITE BLOOD CELL (test code = 7.9 x10 3/uL 4.5-11.0 N WBC) RED BLOOD CELL (test code = 3.53 x10 6/uL 3.54-5.02 L RBC) HEMOGLOBIN (test code = HGB) 10.9 g/dL 11.0-15.0 L HEMATOCRIT (test code = HCT) 35.1 % 33.0-45.0 N MEAN CELL VOLUME (test code = 99.4 fL 81.0-99.0 H MCV) MEAN CELL HGB (test code = MCH) 30.9 pg 27.0-33.0 N MEAN CELL HGB CONCETRATION 31.1 g/dL 33.0-37.0 L (test code = MCHC) RED CELL DISTRIBUTION WIDTH CV 13.2 % 11.5-14.5 N (test code = RDW) RED CELL DISTRIBUTION WIDTH SD 47.7 fL 37.0-54.0 N (test code = RDW-SD) PLATELET COUNT (test code = 402 x10 3/uL 150-400 H PLT) MEAN PLATELET VOLUME (test code 8.8 fL 7.0-9.0 N = MPV) NEUTROPHIL % (test code = NT%) 73.2 % 56.0-77.0 N IMMATURE GRANULOCYTE % (test 0.9 % 0.0-2.0 N code = IG%) LYMPHOCYTE % (test code = LY%) 17.1 % 14.0-32.0 N MONOCYTE % (test code = MO%) 5.1 % 4.8-9.0 N EOSINOPHIL % (test code = EO%) 3.1 % 0.3-3.7 N BASOPHIL % (test code = BA%) 0.6 % 0.0-2.0 N NUCLEATED RBC % (test code = 0.0 % 0-0 N NRBC%) NEUTROPHIL # (test code = NT#) 5.75 x10 3/uL 2.0-7.6 N IMMATURE GRANULOCYTE # (test 0.07 x10 3/uL 0.00-0.03 H code = IG#) LYMPHOCYTE # (test code = LY#) 1.34 x10 3/uL 1.0-3.8 N MONOCYTE # (test code = MO#) 0.40 x10 3/uL 0.1-0.8 N EOSINOPHIL # (test code = EO#) 0.24 x10 3/uL 0.0-0.2 H BASOPHIL # (test code = BA#) 0.05 x10 3/uL 0.0-0.2 N NUCLEATED RBC # (test code = 0.00 x10 3/uL 0.0-0.1 N NRBC#) MANUAL DIFF REQUIRED (test code NO = MDIFF) UA RFLX MICR CULT IF [id number] 15:12:00 Test Item Value Reference Range Interpretation Comments UA COLOR (test code = COLU) YELLOW YEL/STRAW UA APPEARANCE (test code = CLEAR CLEAR APPU) UA GLUCOSE DIPSTICK (test code NEGATIVE NEGATIVE = DGLUU) UA BILIRUBIN DIPSTICK (test NEGATIVE NEGATIVE code = BILU) UA KETONE DIPSTICK (test code NEGATIVE NEGATIVE = KETU) UA SPECIFIC GRAVITY (test code 1.014 1.005-1.030 N = SGU) UA BLOOD DIPSTICK (test code = 2+ NEGATIVE A BRETT) UA PH DIPSTICK (test code = 5.0 5.0-7.0 N CLOVIS) UA PROTEIN DIPSTICK (test code NEGATIVE NEGATIVE = PROU) UA UROBILINIOGEN DIPSTICK 0.2 mg/dL 0.2-1.0 (test code = URO) UA NITRITE DIPSTICK (test code NEGATIVE NEGATIVE = PRADEEP) UA LEUKOCYTE ESTERASE DIPSTICK 1+ NEGATIVE A (test code = LEUU) UA WBC (test code = WBCU) 0-3 WBC/HPF 0-3 UA RBC (test code = RBCU) 0-3 RBC/HPF 0-3 UA WBC NO REFLEX (test code = 0-3 WBC/HPF 0-3 WBCUCL) UA BACTERIA (test code = BACU) NONE SEEN /HPF NONE SEEN UA SQUAMOUS CELLS (test code = 0-5 /HPF NONE SEEN SQU) POC LACTIC [id number] 13:43:00 Test Item Value Reference Range Interpretation Comments POC LACTIC ACID (test code = 1.5 mmol/l 0.9-1.7 N POCLAC) URINE HCG TRIAGE (ER ONLY)2022-01-13 13:40:00 Test Item Value Reference Range Interpretation Comments URINE HCG TRIAGE (ER ONLY) (test NEGATIVE Negative code = HCGTRIAGE) Urine Test Result: NEGATIVEAre internal controls (presence of a control line & clear background) OK? YesLot # of HCG Test Kit: [id number] Date of Kit: 04/07/23Test Performed by:Zaire Porter Perfomed on: 01/13/22COMMENTS: NEGATIVEComment: NEGATIVECBC W/AUTO DIFF 2022-01-13 11:05:00 Test Item Value Reference Range Interpretation Comments WHITE BLOOD CELL (test code = WBC) 19.2 K/uL 3.5-11.0 H RED BLOOD CELL (test code = RBC) 3.71 M/uL 3.54-5.02 N HEMOGLOBIN (test code = HGB) 12.0 GM/DL 11.0-15.0 N HEMATOCRIT (test code = HCT) 34.1 % 37.0-47.0 L MEAN CELL VOLUME (test code = MCV) 91.9 fL 81.0-99.0 N MEAN CELL HGB (test code = MCH) 32.3 pg 27.0-31.0 H MEAN CELL HGB CONCETRATION (test 35.2 GM/DL 33.0-37.0 N code = MCHC) RED CELL DISTRIBUTION WIDTH CV 13.5 % 11.5-14.5 N (test code = RDW) PLATELET COUNT (test code = PLT) 426 K/mm3 150-400 H MEAN PLATELET VOLUME (test code = 8.5 FL 8.8-13.1 L MPV) NEUTROPHIL % (test code = NT%) 90.5 % 40.0-76.0 H LYMPHOCYTE % (test code = LY%) 6.8 % 15.0-40.0 L MIXED % (test code = MX%) 2.7 % 3.0-15.0 L NEUTROPHIL # (test code = NT#) 17.4 K/uL 1.8-7.6 H LYMPHOCYTE # (test code = LY#) 1.3 K/uL 1.0-3.8 N MIXED # (test code = MX#) 0.5 k/mm3 0.1-0.8 N LIVER [id number] 10:55:00 Test Item Value Reference Range Interpretation Comments TOTAL PROTEIN (test code 7.4 GM/DL 5.0-8.0 N Per formed by = PROT) certified operzander tor at [facility] ALBUMIN (test code = 3.3 g/dL 3.4-5.0 L ALB) BILIRUBIN TOTAL (test 0.6 MG/DL 0.0-1.0 N code = BILT) SGOT/AST (test code = 24 IUnit/L 15-37 N AST) SGPT/ALT (test code = 22 IUnit/L 30-65 L ALT) GAMMA GLUTAMYL 33 UNITS/L 5-85 N TRANSPEPTIDASE (test code = GGT) ALKALINE PHOSPHATASE 76 IUNIT/L 20-125 N TOTAL (test code = ALKP) AMYLASE (test code = 16 UNITS/L 25-125 L DAVID) UA DIPSTICK [id number] 10:52:00 Test Item Value Reference Range Interpretation Comments UA GLUCOSE DIPSTIC POC NEGATIVE NEGATIVE (test code = GLUUP) UA BILIRUBIN DIPSTICK NEGATIVE NEGATIVE (test code = BILU) UA KETONE DIPSTICK POC NEGATIVE NEGATIVE (test code = KETUP) UA SPECIFIC GRAVITY (test 1.020 1.005-1.030 N code = SGU) UA BLOOD DIPSTIC POC TRACE NEGATIVE Perform ed by (test code = BLUP) 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 [facility] UA PH DIPSTIC POC (test 5 5.0-7.0 N code = PHUP) UA PROTEIN DIPSTICK POC NEGATIVE NEGATIVE (test code = DPROUP) UA UROBILINIOGEN QUAL 1+ 0.2-1.0 A (test code = UROQL) UA NITRITE DIPSTICK POC NEGATIVE Negative (test code = NITUP) UA LEUKOCYTE ESTERASE W 2+ NEGATIVE A REFLEX (test code = LEUUR) BASIC METABOLIC [id number] 10:44:00 Test Item Value Reference Range Interpretation Comments SODIUM (test code = NA/ABG) 140 MEQ/L 134-147 N POTASSIUM (test code = K/ABG) 3.7 MEQ/L 3.4-5.0 N CHLORIDE (test code = CL/ABG) 104 MEQ/L 100-108 N CREATININE ABG (test code = 0.7 mg/dL 0.6-1.0 N CREAABG) POC IONIZED CALCIUM (test code = 1.12 MMOL/L 1.12-1.32 N POCCA) POC GLUCOSE (test code = POCGLU) 140 MG/DL - US PELVIS [id number] 00:00:00 [facility] 1980 Sex: F Name: DYLAN RIVERO [facility] : 1980 Age/S: 41 / F [address] [place] [address] Blvd Unit #: [id number] Loc: [place] [address] Phys: Doreen Avalos DO Acct: [id number] Dis Date: Status: ADM IN PHONE #: [phone] Exam Date: 01/13/20222046 FAX #: [phone] Reason: RIGHT ADNEXAL MASSEXAMS: CPT CODE: [id number] US PELVIS COMPLETE 21352 PROCEDURE INFORMATION: Exam: US Pelvis Complete (Transabdominal), Pelvis (Transvaginal), and US Duplex Artery or Vein (Ovaries) Limited Exam date andtime: 01/13/2022 8:16 PM Age: 41 years old Clinical indication: Pain and abnormal findings; Abnormal imaging test; Exam and body structure: CT, RT ov; Pelvic pain; Additional info: Right adnexal mass TECH NIQUE: Imaging protocol: Real-time transabdominal and transvaginal pelvic ultrasound (complete) withimage documentation. Transvaginal imaging was used for better evaluation of the endometrium, adnexa,and/or cervix. Real-time duplex ultrasound scan of the arterial or venous flow of the ovaries with B-mode, color Doppler flow and spectral waveform analysis. Complete Pelvis, Limited Duplex. COMPARISON: CT ABD PELVIS W/CONT 01/13/2022 11:08 AM FINDINGS: Uterus: Uterus is normal. 8.6 x 4.2 x 4.4 cm. Endometrial stripe is normal. 1.0 cm. Right ovary/adnexa: Normal duplex of the ovary. Normal Doppler waveforms and color flow. The right ovary is markedly enlarged, measuring 10.1 x 6.6 x 7.7 cm. Multiple internally complex, avascular right adnexal cysts are present, the largest measuring 5.1 by 5.8 x 5.3 cm, possibly representing a hemorrhagic cyst. Left ovary/adnexa: Normal duplex of the ovary. Normal Doppler waveforms and color flow. The left ovary is enlarged, measuring 5.4 x 3.9 x 4.3 cm. A complex left adnexal cyst measures 3.2 by 3.4 x 3.2 cm. Intraperitoneal space: No intraperitoneal fluid. Urinary bladder: Visualized bladder is unremarkable. IMPRESSION: Complex adnexal cysts are present bilaterally. These may be hemorrhagic. Follow-up sonography in 2 or 3 cycles is recommended to ensure resolution. at 2099 Reported and signed by: Matilde Spencer M.D. PAGE 1 Signed Report (CONTINUED) Name: DYLAN RIVERO [facility] : 1980 Age/S: 41 / F [address] [place] [address] Unit #: [id number] Loc: [place] [address] Phys: Doreen Avalos DO Acct: [id number] Dis Date: Status: ADM IN PHONE #: [phone] Exam Date: 01/13/20222046 FAX #: [phone] Reason: RIGHT ADNEXAL MASS EXAMS: CPT CODE: [id number] US PELVIS COMPLETE 11497 (Continued) CC: Korin Ambriz MD; Doreen Avalos DO; Yesenia Long MD Technologist: Marine Miller RDMS(AB)(OB) Trnscb Date/Time: 01/13/2022 (2099) [email or web address] Rob Print D/T: S: 01/13/2022 (2100) Probe: PAGE 2 Signed Report- US TRANSVAGINAL NON [id number] 00:00:00 [facility] 1980 Sex: F Name: [facility] : 1980 Age/S: 41 / F [address] [place] [address] Unit #: [id number] Loc: SE[place] [address] Phys: Doreen Avalos DO Acct: [id number] Dis Date: Status: ADM IN PHONE #: [phone] Exam Date: 01/13/20222046 FAX #: [phone] Reason: see US Pelvic NonOB Complete EXAMS: CPT CODE: [id number] [place] [address] PROCEDURE INFORMATION: Exam: US Pelvis Complete (Transabdominal), Pelvis (Transvaginal), and US Duplex Artery or Vein (Ovaries) Limited Exam date and time: 01/13/2022 8:16 PM Age: 41 years old Clinical indication: Pain and abnormal findings; Abnormal imaging test; Exam and body structure: CT, RT ov; Pelvic pain; Additional info: Rightadnexal mass TECHNIQUE: Imaging protocol: Real-time transabdominal and transvaginal pelvic ultrasound (complete) with image documentation. Transvaginal imaging was used for better evaluation of the endometrium, adnexa, and/or cervix. Real-time duplex ultrasound scan of the arterial or venous flow of the ovaries with B- mode, color Doppler flow and spectral waveform analysis. Complete Pelvis, Limited Duplex. COMPARISON: CT ABD PELVIS W/CONT 01/13/2022 11:08 AM FINDINGS: Uterus: Uterus is normal. 8.6 x 4.2 x 4.4 cm. Endometrial stripe is normal. 1.0 cm. Right ovary/adnexa: Normal duplex of the ovary. Normal Doppler waveforms and color flow. The right ovary is markedly enlarged, measuring 10.1 x 6.6 x 7.7 cm. Multiple internally complex, avascular right adnexal cysts are present, the largest measuring5.1 by 5.8 x 5.3 cm, possibly representing a hemorrhagic cyst. Left ovary/adnexa: Normal duplex of the ovary. Normal Doppler waveforms and color flow. The left ovary is enlarged, measuring 5.4 x 3.9 x 4.3 cm. A complex left adnexal cyst measures 3.2 by 3.4 x 3.2 cm. Intraperitoneal space: No intraperitoneal fluid. Urinary bladder: Visualized bladder is unremarkable. IMPRESSION: Complex adnexal cystsare present bilaterally. These may be hemorrhagic. Follow-up sonography in 2 or 3 cycles is recommended to ensure resolution. at 2100 Reported and signed by: Matilde Spencer M.D. PAGE 1 Signed Report (CONTINUED) Name: DYLAN RIVERO [facility] : 1980 Age/S: 41 / F [address] [place] [address] Unit #: [id number] Loc: [place] [address] Phys: Doreen Avalos DO Acct: [id number] Dis Date: Status: ADM IN PHONE #: [phone] Exam Date: 01/13/20222046 FAX #: [phone] Reason: see US Pelvic Non OB Complete EXAMS: CPT CODE: [id number] [place] [address] (Continued) CC: Korin Ambriz MD; Doreen Avalos DO; Yesenia Long MD Technologist: Marine Miller RDMS(AB)(OB) Trnscb Date/Time: 01/13/2022 (2099) NanetteJYA Orig Print D/T: S: 01/13/2022 (2100) Probe: [id number] PAGE 2 Signed Report- DUP AB/PEL/SC/[id number] 00:00:00 [facility] : 1980 Sex: F Name: [facility] : 1980 Age/S: 41 / F [address] [place] [address] Unit #: [id number] Loc: SEAN Gomez [address] Phys: Doreen Avalos DO Acct: [id number] Dis Date: Status: ADM IN PHONE #: [phone] Exam Date: 01/13/20222047 FAX #: [phone] Reason: see US Pelvic NonOB Complete EXAMS: CPT CODE: [id number] DUP AB/PEL/SC/LTD 96605 PROCEDURE INFORMATION: Exam: US Pelvis Complete (Transabdominal), Pelvis (Transvaginal), and US Duplex Artery or Vein (Ovaries) Limited Exam date and time: 01/13/2022 8:16 PM Age: 41 years old Clinical indication: Pain and abnormal findings;Abnormal imaging test; Exam and body structure: CT, RT ov; Pelvic pain; Additional info: Right adnexal mass TECHNIQUE: Imaging protocol: Real-time transabdominal and transvaginal pelvic ultrasound (complete) with image documentation. Transvaginal imaging was used for better evaluation of the endometrium, adnexa, and/or cervix. Real-time duplex ultrasound scan of the arterial or venous flow of the ovaries with B- mode, color Doppler flow and spectral waveform analysis. Complete Pelvis, Limited Duplex.COMPARISON: CT ABD PELVIS W/CONT 01/13/2022 11:08 AM FINDINGS: Uterus: Uterus is normal. 8.6 x 4.2 x 4.4 cm. Endometrial stripe is normal. 1.0 cm. Right ovary/adnexa: Normal duplex of the ovary. Normal Doppler waveforms and color flow. The right ovary is markedly enlarged, measuring 10.1 x 6.6 x 7.7 cm. Multiple internally complex, avascular right adnexal cysts are present, the largest measuring 5.1 by5.8 x 5.3 cm, possibly representing a hemorrhagic cyst. Left ovary/adnexa: Normal duplex of the ovary. Normal Doppler waveforms and color flow. The left ovary is enlarged, measuring 5.4 x 3.9 x 4.3 cm.A complex left adnexal cyst measures 3.2 by 3.4 x 3.2 cm. Intraperitoneal space: No intraperitonealfluid. Urinary bladder: Visualized bladder is unremarkable. IMPRESSION: Complex adnexal cysts are present bilaterally. These may be hemorrhagic. Follow-up sonography in 2 or 3 cycles is recommended to ensure resolution. at 2100 Reported and signed by: Matilde Spencer M.D. PAGE 1 Signed Report (CONTINUED) Name: DYLAN RIVERO [facility] Kun[place] : 1980 Age/S: 41 / F [address] [place] [address] Unit #: [id number] Loc: Sarah jones SEAN [address] Phys: Doreen Avalos DO Acct: [id number] Dis Date: Status: ADM IN PHONE #: [phone] Exam Date: 01/13/20222047 FAX #: [phone] Reason: see US Pelvic Non OB Complete EXAMS: CPT CODE: [id number] DUP AB/PEL/SC/LTD 35237 (Continued) CC: Korin Ambriz MD; Doreen Avalos DO; Yesenia Long MD Technologist: Marine Miller RDMS(AB)(OB) Trnscb Date/Time: 01/13/2022 (2099) [email or web address] Orig Print D/T: S: 01/13/2022 (2100) Probe: PAGE 2 Signed Report- CT ABD PELVIS [id number] 00:00:00 [facility] 1980 Sex: F Name: DYLAN RIVERO FSED : 1980 Age/S: 41 / F [address] [facility] Unit #: [id number] Loc: [place] [address] Phys: Julienne Webster E DO Acct: [id number] Dis Date: Status: REG ER PHONE #: Exam Date: 01/13/2022 1127 FAX #: Reason: h/o ovarian cysts and kid stones EXAMS: CPT CODE: [id number] CT ABD PELVIS W/CONT 58688 PROCEDURE INFORMATION: Exam: CT Abdomen And Pelvis With Contrast Exam date and time: 01/13/2022 11:08 AM Age: 41 years old Clinical indication: Other: Pelvis and back pain; Additional info: H/o ovarian cysts and kid stones TECHNIQUE: Imaging protocol: Computed tomography of the abdomen and pelvis with contrast. Radiation optimization: All CT scans at this facility use at least one of these dose optimization techniques: automated exposure control; mA and/or kV adjustment per patient size (includes targeted exams where dose is matched to clinical indication); or iterative reconstruction. Contrast material: ISOVUE 300; Contrast volume: 100 ml; Contrast route: INTRAVENOUS (IV); COMPARISON: DX XR PELVIS 1/2 VIEWS 03/12/2018 2:29 PM FINDINGS: Lungs: There is a calcified granuloma in the lingula. The visualized lung bases are otherwise clear. Liver: Normal. Gallbladder and bile ducts: Normal. No calcified stones. No ductal dilation. Pancreas: Normal. Spleen: There are numerous calcified granulomata within otherwise unremarkable spleen. Adrenal glands: Circumscribed left adrenal nodule, 2.3 x 2.2 cm, attenuation nonspecific on this postcontrast exam. The right adrenalis normal. Kidneys and ureters: Normal. No hydronephrosis. Stomach and bowel: Unremarkable. Appendix: No evidence of appendicitis. Intraperitoneal space: There is a small volume of free intraperitonealfluid in the abdomen and pelvis. Mild stranding of intraperitoneal tissue planes in the lower abdomen and pelvis with trace fluid between mesenteric leaves. There is no focal fluid collection. No free intraperitoneal air. Vasculature: The aorta demonstrates mild atherosclerotic calcification. Lymph nodes: There are several small posterior mediastinal para- aortic nodes measuring up to 9 mm. There are small anterior diaphragmatic nodes measuring up to 7 mm short axis. There are multiple heterogeneous attenuation retroperitoneal nodes. Interaortocaval node series 2, image 73, 16 x 10 mm. Left PAGE 1Signed Report (CONTINUED) Name: DYLAN RIVERO FSED : 1980 Age/S: 41 / F [address] [facility] Unit #: [id number] Loc: [place] [address] Phys: Julienne Webster DO Acct: [id number] Dis Date: Status: REG ER PHONE #: Exam Date: 01/13/2022 112 FAX #: Reason: h/o ovarian cysts and kid stones EXAMS: CPT CODE: [id number] CT ABD PELVIS W/CONT 08718 (Continued) para-aortic node series 2, image 86, 15 x 10 mm. There is no inguinal or pelvic adenopathy by size criteria. Urinary bladder: Urinary bladder is unremarkable. Reproductive: There is a complex cystic right adnexal mass composed of cysts of variable size, measuring up to 6 cm. As a whole, lesion size estimated 9.1 x 6.6 x 6.8 cm. There are no lipid or calcific density components. There is a left ovarian cyst measuring 3.6 x 2.8 x 3.3 cm. Uterus is unremarkable. Bones/joints: Unremarkable. No acute fracture. Soft tissues: Unremarkable. IMPRESSION: 1. Complex cystic right adnexal mass. Physiologic/hemorrhagic cysts, inflammatory processes and cystic neoplasm in the differential. Given the presence of retroperitoneal adenopathy atand above the level of gonadal veins, ovarian neoplasm is suspected. Recommend further evaluation with urgent pelvic ultrasound with gynecology consultation. 2. Small volume of free intraperitoneal fluid. 3. Left adrenal nodule incompletely characterized. In the absence of prior studies, further imaging options include nonemergent adrenal protocol CT or MRI. at 1210 Reported and signed by: Golden Phillips M.D. CC: Julienne Webster DO Technologist:Susan Auguste, RT(R)(CT) CTDI: DLP: Trnscb Date/Time: 01/13/2022 (1210) [email or web address] Orig Print D/T: S: 01/13/2022 (3013) PAGE 2 Signed ReportURINE HCG TRIAGE (ER ONLY)2021-07-17 08:45:00 Test Item Value Reference Range Interpretation Comments URINE HCG TRIAGE (ER ONLY) (test POSITIVE Negative code = HCGTRIAGE) Urine Test Result: POSITIVEAre internal controls (presence of a control line & clear background) OK? YesLot # of HCG Test Kit: [id number] Date of Kit: 12/08/22Test Performed by:FREDO Cool Perfomed on: 07/13/21COMMENTS: NEGATIVEComment: NEGATIVEURINE HCG TRIAGE (ER ONLY)2021-07-15 11:26:00 Test Item Value Reference Range Interpretation Comments URINE HCG TRIAGE (ER ONLY) (test NEGATIVE Negative code = HCGTRIAGE) Urine Test Result: NEGATIVEAre internal controls (presence of a control line & clear background) OK? YesLot # of HCG Test Kit: [id number] Date of Kit: 12/08/22Test Performed by: Echo BOWENS Perfomed on: 07/13/21UA RFLX MICR CULT IF [id number] 11:17:00 Test Item Value Reference Range Interpretation Comments UA COLOR (test code = COLU) CHRISTIANA YEL/STRAW A UA APPEARANCE (test code = TURBID CLEAR A APPU) UA GLUCOSE DIPSTICK (test code NEGATIVE NEGATIVE = DGLUU) UA BILIRUBIN DIPSTICK (test NEGATIVE NEGATIVE code = BILU) UA KETONE DIPSTICK (test code = NEGATIVE NEGATIVE KETU) UA SPECIFIC GRAVITY (test code 1.030 1.005-1.030 N = SGU) UA BLOOD DIPSTICK (test code = 1+ NEGATIVE A BRETT) UA PH DIPSTICK (test code = 7.0 5.0-7.0 N CLOVIS) UA PROTEIN DIPSTICK (test code 2+ NEGATIVE A = PROU) UA UROBILINIOGEN DIPSTICK (test 0.2 mg/dL 0.2-1.0 code = URO) UA NITRITE DIPSTICK (test code NEGATIVE NEGATIVE = PRADEEP) UA LEUKOCYTE ESTERASE DIPSTICK NEGATIVE NEGATIVE (test code = LEUU) UA WBC (test code = WBCU) 0-3 WBC/HPF 0-3 UA RBC (test code = RBCU) 11-20 RBC/HPF 0-3 UA WBC NO REFLEX (test code = 0-3 WBC/HPF 0-3 WBCUCL) UA BACTERIA (test code = BACU) 1+ /HPF NONE SEEN A UA SQUAMOUS CELLS (test code = 36-50 /HPF NONE SEEN A SQU) UA CALCIUM OXALATE CRYSTALS 4+ /HPF NONE SEEN A (test code = CAOXU) UA MUCUS (test code = MUCU) TRACE /LPF NONE SEEN UA AMORPHOUS SEDIMENT (test TRACE /HPF NONE code = AMORU) UA YEAST (BUDDING) (test code = 2+ /HPF NONE A YEASTUBD) CBC W/AUTO [id number] 21:11:00 Test Item Value Reference Range Interpretation Comments WHITE BLOOD CELL (test code = WBC) 12.1 K/uL 3.5-11.0 H RED BLOOD CELL (test code = RBC) 3.71 M/uL 3.54-5.02 N HEMOGLOBIN (test code = HGB) 12.2 GM/DL 11.0-15.0 N HEMATOCRIT (test code = HCT) 34.5 % 37.0-47.0 L MEAN CELL VOLUME (test code = MCV) 93.0 fL 81.0-99.0 N MEAN CELL HGB (test code = MCH) 32.9 pg 27.0-31.0 H MEAN CELL HGB CONCETRATION (test 35.4 GM/DL 33.0-37.0 N code = MCHC) RED CELL DISTRIBUTION WIDTH CV 13.2 % 11.5-14.5 N (test code = RDW) PLATELET COUNT (test code = PLT) 367 K/mm3 150-400 N MEAN PLATELET VOLUME (test code = 9.1 FL 8.8-13.1 N MPV) NEUTROPHIL % (test code = NT%) 83.3 % 40.0-76.0 H LYMPHOCYTE % (test code = LY%) 11.4 % 15.0-40.0 L MIXED % (test code = MX%) 5.3 % 3.0-15.0 N NEUTROPHIL # (test code = NT#) 10.1 K/uL 1.8-7.6 H LYMPHOCYTE # (test code = LY#) 1.4 K/uL 1.0-3.8 N MIXED # (test code = MX#) 0.6 k/mm3 0.1-0.8 N D-DIMER [id number] 17:29:00 Test Item Value Reference Range Interpretation Comments D-DIMER RAPID (test 224 ng/mL 0-232 N Performe d by certified code = DDIMRAP) 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 Negative result s do not preclude [id number] tion and should not be u sed as the sole basis forp atient management deci sions. Negative result s should beconsidered in the context of a patient's recent exposures,histo ry, presence of clinical sig ns and symptoms consis tentwith COVID-19. 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 09An elevated tropon in value alone is not babcock fficient todiagnose a my ocardial infarction. Rat her, the patient sclinic al presentation (h istory, physical exam) and ECGshould be us ed in conjunction wit h troponin in thediagnosti c evaluation of s uspected myocardial infa rction. Aserial samplin g protocol is recommended to facilitate the identification of temporal changes in trop onin levels characteristic of [place]. BASIC METABOLIC [id number] 17:02:00 Test Item Value Reference Range Interpretation Comments SODIUM (test code = NA/ABG) 138 MEQ/L 134-147 N POTASSIUM (test code = K/ABG) 3.4 MEQ/L 3.4-5.0 N CHLORIDE (test code = CL/ABG) 106 MEQ/L 100-108 N CREATININE ABG (test code = 0.9 mg/dL 0.6-1.0 N CREAABG) POC IONIZED CALCIUM (test code = 1.08 MMOL/L 1.12-1.32 L POCCA) POC GLUCOSE (test code = POCGLU) 95 MG/DL UA DIPSTICK [id number] 16:54:00 Test Item Value Reference Range Interpretation Comments UA GLUCOSE DIPSTIC POC NEGATIVE NEGATIVE (test code = GLUUP) UA BILIRUBIN DIPSTICK NEGATIVE NEGATIVE (test code = BILU) UA KETONE DIPSTICK POC NEGATIVE NEGATIVE (test code = KETUP) UA SPECIFIC GRAVITY (test 1.015 1.005-1.030 N code = SGU) UA BLOOD DIPSTIC POC 2+ NEGATIVE A Perform ed by (test code = BLUP) 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 [facility] UA PH DIPSTIC POC (test 7 5.0-7.0 N code = PHUP) UA PROTEIN DIPSTICK POC TRACE NEGATIVE A (test code = DPROUP) UA UROBILINIOGEN QUAL NORMAL 0.2-1.0 (test code = UROQL) UA NITRITE DIPSTICK POC NEGATIVE Negative (test code = NITUP) UA LEUKOCYTE ESTERASE W TRACE NEGATIVE A REFLEX (test code = LEUUR) - XR CHEST 1 [id number] 00:00:00 [facility] 1980 Sex: F FAX: Gilberto Man [phone] [place]: [address]: PRE Name: DYLAN RIVERO FSED : 1980 Age/S: 41/F [address] [facility] Unit #: [id number] Loc: [place] [address] Phys: Gilberto Dalton [facility]: [id number] Dis Date: Status: PRE ER PHONE #: Exam Date: 07/13/2021 3590 FAX #: Reason: sob EXAMS: CPT CODE: [id number] XR CHEST 1 V 80061 PROCEDURE INFORMATION: Exam: XR Chest Exam date and time: 07/13/2021 3:29 PM Age: 41 years old Clinical indication: Shortness of breath; Additional info: SOBTECHNIQUE: Imaging protocol: XR of the chest. Views: 1 view. COMPARISON: DX XR CHEST 1V 03/12/2018 2:29 PM FINDINGS: Lungs: Mild decreased lung volumes. No consolidation. Pleural spaces: No pleural effusion. No pneumothorax. Heart/Mediastinum: Heart size is within normal limits. Vasculature is unremarkable. Bones/joints: No acute osseous abnormalities. IMPRESSION: No acute cardiopulmonary findings. at 2403 Reported and signed by: Norm Paniagua M.D. CC: Gilberto Dalton MD Technologist: RT Campos(R)(CT) Trnscrd Date/Time/By: 07/13/2021 (9256) : By: [email or web address] Orig Print D/T: S: 07/13/2021 (1820) PAGE 1 Signed Report
[2022-11-16 10:28] LABS: Urine Blood Negative (Negative); Urine Glucose Negative (Negative); Urine Protein Negative (Negative); Urine Specific Gravity 1.025 (1.005-1.030)
[2022-11-16 11:13] LABS: Urine Specific Gravity/Preg 1.025 (1.005-1.030)
--- NOTE | 2022-11-16 11:35 | RAD REPORT ---
EXAM DESCRIPTION: RAD - Abdomen 1 View (KUB) - 11/16/2022 11:23 am CLINICAL HISTORY: CONSTIPATION COMPARISON: No comparisons FINDINGS: Constipation pattern is present with a large stool volume distending but not grossly dilat ing the colon from cecum to the proximal rectum. No small bowel dilatation. No free air or pneumatosi s. Splenic granulomatous calcifications are present. No suspicion for renal or ureteral calculi. No significant bony findings IMPRESSION: Constipation pattern with large stool volume distending the colon.
--- NOTE | 2022-11-16 11:39 | EDPHYS ---
Physician Documentation [facility] Name: Deborah Jamil Age: 42 yrs Sex: Female : 1980 Arrival Date: 11/16/2022 Time: 10:06 Bed 13 Private MD: ED Physician Kristian Rutledge HPI: 11/16 10:20 This 42 yrs old Female presents to ER via Ambulatory with complaints of Constipation. en 10:20 Onset: The symptoms/episode began/occurred gradually, 4 week(s) ago. 23-year-old female en with history of methamphetamine abuse currently in rehab presents to ED with chronic constipation with last normal bowel movement month ago. Patient reports that she had small intermittent hard stools over the course of the month but no significant relief. She did a telemetry doc visit. They wrote for lactulose and MiraLAX without resolution. She comes today with persistent constipation. She has sensation of abdominal bloating and distention but no significant abdominal pain. No nausea, vomiting, diarrhea. No fevers, chills, melena, hematochezia. 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 - Social history:: Smoking status: Patient reports the use of cigarette tobacco products, smokes one-half pack cigarettes per day, Reported history of juuling and/or vaping. Patient uses street drugs, currently in rehab for meth use . ROS: 10:20 Constitutional: Negative for fever, chills, and weight loss. en 10:20 Abdomen/GI: Positive for constipation, Negative for nausea, vomiting, and diarrhea. 10:20 All other systems are negative. en Exam: 10:20 Constitutional: This is a well developed, well nourished patient who is awake, alert, en and in no acute distress. Head/Face: Normocephalic, atraumatic. Cardiovascular: Regular rate and rhythm with a normal S1 and S2. No gallops, murmurs, or rubs. Normal PMI, no JVD. No pulse deficits. Respiratory: Lungs have equal breath sounds bilaterally, clear to auscultation and percussion. No rales, rhonchi or wheezes noted. No increased work of breathing, no retractions or nasal flaring. Abdomen/GI: Mild abdominal distention without tenderness to palpation. Normoactive bowel sounds. No ascites. No hepatomegaly. No rebound guarding or peritoneal signs. Back: No spinal tenderness. No costovertebral tenderness. Full range of motion. Neuro: Awake and alert, GCS 15, oriented to person, place, time, and situation. Vital Signs: 10:14 BP 118 / 77; Pulse 84; Resp 16; Temp 98.1; Pulse Ox 100% on R/A; iw 11:51 BP 116 / 75; Pulse 78; Pulse Ox 99% ; iw MDM: 10:07 Patient medically screened. en 10:20 Differential diagnosis: Chronic constipation from illicit drug use, irritable bowel en syndrome with constipation, bowel obstruction (less likely given exam). Data reviewed: vital signs, nurses notes, radiologic studies. ED course: 42-year-old female with recurrent chronic constipation. Vitals are stable, exam with mild abdominal distention but soft with normal bowel sounds. Did not no acute abdomen on exam. Low suspicion for acute surgical abdomen. Will get KUB after negative test. Plan to DC home with GoLytely and mineral oil enema with GI referral as outpatient.. 11:37 ED course: KUB consistent with constipation. No clinical obstruction/ normal bowel en sounds and not an acute abdomen on exam. Will d/c home with golytley and mineral oil enema with GI f/u.. 11/16 10:28 Order name: Urine Dipstick-Ancillary; Complete Time: 11:27 EDMS 11/16 10:29 Order name: Urine --Ancillary (enter results); Complete Time: 11:27 bd 11/16 10:19 Order name: Urine Test (obtain specimen); Complete Time: 10:28 en 11/16 10:19 Order name: Abdomen 1 View (KUB) XRAY; Complete Time: 11:37 en Administered Medications: No medications were administered Disposition Summary: 11/16/22 11:39 Discharge Ordered Location: Home en Problem: an acute exacerbation en Symptoms: are unchanged en Condition: Stable en Diagnosis - Constipation, unspecified en Followup: en - With: Alvin Farnsworth MD - When: Upon discharge from the Emergency Department - Reason: Recheck today's complaints, Re-evaluation by your physician Discharge Instructions: - Discharge Summary Sheet en - Constipation, Adult en Forms: - Medication Reconciliation Form en - Thank You Letter en - Antibiotic Education en - Prescription Opioid Use en Prescriptions: - Golytely - take 1 bottle by ORAL route one time; 1 bottle; Refills: 0, Product Selection en Permitted - mineral oil - insert 1 suppository by RECTAL route 1-2 times daily As needed 1 mineral oil en eneme per rectum 1-2 time daily as needed for constipation; 4 suppository; Refills: 0, Product Selection Permitted Signatures: Dispatcher [employer] Isela Lee, RN Toshia Munguia PA PA en Oliver, Kathy RN RN ko1
--- NOTE | 2022-11-16 11:39 | ER ---
Nurse's Notes [facility] Name: Deborah Jamil Age: 42 yrs Sex: Female : 1980 Arrival Date: 11/16/2022 Time: 10:06 Bed 13 Private MD: Diagnosis: Constipation, unspecified Presentation: 11/16 10:14 Chief complaint: Patient states: has not had BM X 1 month, has taken lactulose and iw Miralax, is in rehab and walks every day. Coronavirus screen: At this time, the client does not indicate any symptoms associated with coronavirus-19. Ebola Screen: Patient negative for fever greater than or equal to 101.5 degrees Fahrenheit, and additional compatible Ebola Virus Disease symptoms Patient denies exposure to infectious person. Patient denies travel to an Ebola-affected area in the 21 days before illness onset. No symptoms or risks identified at this time. Initial Sepsis Screen: Does the patient meet any 2 criteria? No. Patient's initial sepsis screen is negative. Does the patient have a suspected source of infection? No. Patient's initial sepsis screen is negative. Risk Assessment: Do you want to hurt yourself or someone else? Patient reports no desire to harm self or others. Onset of symptoms was October 2022. 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 - Social history:: Smoking status: Patient reports the use of cigarette tobacco products, smokes one-half pack cigarettes per day, Reported history of juuling and/or vaping. Patient uses street drugs, currently in rehab for meth use . Screenin:30 [facility] ED Fall Risk Assessment (Adult) History of falling in the last 3 months, ko1 including since admission No falls in past 3 months (0 pts) Confusion or Disorientation No (0 pts) Intoxicated or Sedated No (0 pts) Impaired Gait No (0 pts) Mobility Assist Device Used No (0 pt) Altered Elimination No (0 pt) Score/Fall Risk Level 0 - 2 = Low Risk Oriented to surroundings, Maintained a safe environment, Educated pt \T\ family on fall prevention, incl call for assistance when getting out of bed, Assessed \T\ reinforced patient's understanding of fall precautions, Provided non-skid footwear, Hourly rounding (assess needs \T\ fall precautionary measures) done, Used ambulatory aids as needed (educated on \T\ assisted with), Used gait belt as appropriate. Abuse screen: Denies threats or abuse. Denies injuries from another. Nutritional screening: No deficits noted. Tuberculosis screening: No symptoms or risk factors identified. Assessment: 10:30 General: Appears in no apparent distress. uncomfortable, Behavior is calm, cooperative, ko1 appropriate for age. Pain: Complains of pain in abdomen. Neuro: No deficits noted. Cardiovascular: No deficits noted. Respiratory: No deficits noted. GI: Bowel sounds hyperactive in right upper quadrant, left upper quadrant, right lower quadrant and left lower quadrant. GI: Guarding noted X 4 quads. : No deficits noted. EENT: No deficits noted. Derm: No deficits noted. Musculoskeletal: No deficits noted. Vital Signs: 10:14 BP 118 / 77; Pulse 84; Resp 16; Temp 98.1; Pulse Ox 100% on R/A; iw 11:51 BP 116 / 75; Pulse 78; Pulse Ox 99% ; iw ED Course: 10:06 Patient arrived in ED. mr 10:07 Toshia Jacobsen PA is PHCP. en 10:07 Kristian Rutledge MD is Attending Physician. en 10:15 Triage completed. iw 10:17 Arm band placed on. iw 10:22 Janet Roman, RN is Primary Nurse. ko1 10:30 Patient has correct armband on for positive identification. Bed in low position. Call ko1 light in reach. Pulse ox on. NIBP on. 10:30 No provider procedures requiring assistance completed. Patient did not have IV access ko1 during this emergency room visit. 11:25 Abdomen 1 View (KUB) XRAY In Process Unspecified. EDMS 11:38 Javad, Alvin, MD is Referral Physician. en Administered Medications: No medications were administered Medication: 10:30 VIS not applicable for this client. ko1 Outcome: 11:39 Discharge ordered by MD. en 11:51 Discharged to home ambulatory. iw 11:51 Condition: good 11:51 Discharge instructions given to patient, Instructed on discharge instructions, follow up and referral plans. medication usage, Demonstrated understanding of instructions, follow-up care, medications, Prescriptions given X 2. 11:52 Patient left the ED. iw Signatures: Dispatcher [employer] MARYNE Brit Rodriguez Irene, RN RN Toshia An PA PA en Oliver, Kathy RN RN ko1
[2022-11-16 12:03] VITALS: TEMP 98.1
[2022-11-16 12:04] VITALS: BP 116/75; O2SAT 99
== END 2022-11-16 11:52 | disposition home or self-care (01) ==
LOC: ER 10:03
DX: K59.00 Constipation, unspecified (principal); Z21 Asymptomatic human immunodeficiency virus [HIV] infection status
CPT/HCPCS: 74018; 81003; 81025; 99283